=== PATIENT | female | born 1940 | race Caucasian/White ===

== ENCOUNTER 2018-05-09 04:32 | Emergency (ER) | payer MEDICARE, BC, SELFPAY ==
[2018-05-09 04:33] VITALS: BP 164/70; PULSE 74; RESP 18; TEMP 36.6; O2SAT 96; BMI 32.5
--- NOTE | 2018-05-09 05:04 | ED.VISSUMM ---
- ER Visit Summary Date of Service: 05/09/18 Chief Complaint: Right eye pain History of Present Illness: The patient is a 77 F who presents for right eye pain after removing her contact last night. Patient states she rapidly pulled her contact out of her eye like she normally does and had immediate pain. She felt like her contact might of been a little bit dry when she took it out. She now has pain, watering of the eye, and blurry vision. She denies any other complaints. No discomfort in the left eye. Physical Examination: Patient is awake and alert, sitting in a room with bright lights on. Right eye is squinted and watering. Examination shows pupils equal round and reactive to light, with consensual response, extraocular movements are intact without pain. Right eye has watery discharge, no purulence, diffuse conjunctival injection. Test Results: [] Emergency Department Course and Treatment: Tetracaine was instilled in the right eye with immediate improvement in patient's pain. Slit lamp exam was performed with fluorescein dye in the right eye. There was a diffuse corneal abrasion to the right cornea. No ulceration or dendritic lesions noted. Because patient is a contact lens wearer, she was started on ciprofloxacin drops and was instructed not to wear her contacts for the next week. The majority of the tetracaine liquid was wasted, and she was given the tetracaine bottle with only a few drops remaining to use for severe pain. She was given follow-up with ophthalmology. She is to return if any worsening of her condition. Patient discharged home. Treatment Plan: [] Disposition: [] Impression: Right corneal abrasion secondary to contact lens removal This note was generated with [employer] dictation software. It may contain incorrect words, spelling, and punctuation that were not noted in review of the chart prior to signing ED Disposition - Plan for ED Patient: Disposition: Home or Assisted Living Chief Complaint: Eye Problem Instructions: ED Corneal Injury Contact Lens Prescriptions: Ciprofloxacin 0.3% [Ciloxan] 2 drp RIGHT EYE 4X/DAY 5 Days #1 bottle Referrals: Raul Enamorado MD [Primary Care Provider] - As Needed Angel Fraser MD [STAFF PHYSICIAN] - 1-2 Days if not improving Additional Instructions: Use the ciprofloxacin eyedrops as prescribed for 5 days. Follow up with the eye doctor on this paperwork in 1-2 days for a re-evaluation to make sure your eye is healing appropriately. If you have any worsening of your condition or any new concerning symptoms, please return immediately to the emergency department for another evaluation.
--- NOTE | 2018-05-09 05:44 | ED.DEP ---
ED Disposition - Plan for ED Patient: Disposition: Home or Assisted Living Chief Complaint: Eye Problem Instructions: ED Corneal Injury Contact Lens Prescriptions: Ciprofloxacin 0.3% [Ciloxan] 2 drp RIGHT EYE 4X/DAY 5 Days #1 bottle Referrals: Raul Enamorado MD [Primary Care Provider] - As Needed Angel Fraser MD [STAFF PHYSICIAN] - 1-2 Days if not improving Additional Instructions: Use the ciprofloxacin eyedrops as prescribed for 5 days. Follow up with the eye doctor on this paperwork in 1-2 days for a re-evaluation to make sure your eye is healing appropriately. If you have any worsening of your condition or any new concerning symptoms, please return immediately to the emergency department for another evaluation.
[2018-05-09] MEDS: Ciprofloxacin 0.3% 2.5ml Bottle 2 DRP RIGHT EYE (05:57)
[2018-05-09] MEDS: Tetracaine 0.5% Ophthalmic Bottle 1 DRP RIGHT EYE (05:58)
[2018-05-09] MEDS: Fluorescein 1 MG STRIP 1 STRIP RIGHT EYE (05:58)
[2018-05-09 06:10] VITALS: RESP 16
== END 2018-05-09 06:11 | disposition home or self-care (01) ==
PROVIDERS: Emergency Provider Emergency Medicine; Family Provider Family Medicine; PCP Family Medicine
DX: S05.01XA Injury of conjunctiva and corneal abrasion without foreign body, right eye, initial encounter (principal); X50.9XXA Other and unspecified overexertion or strenuous movements or postures, initial encounter; Y93.9 Activity, unspecified; Y92.89 Other specified places as the place of occurrence of the external cause; Y99.9 Unspecified external cause status
CPT/HCPCS: 99282

== ENCOUNTER → 2019-03-22 10:39 | Outpatient (CLI) | payer MEDICARE, BC, SELFPAY ==
--- NOTE | 2019-03-22 10:44 | RAD_ITS ---
STUDY: X-RAY - LEFT KNEE REASON FOR EXAM: Female, 78 years old. TECHNIQUE: view(s) of the knee. COMPARISON: None. FINDINGS: Normal visualized distal femur. Normal visualized proximal tibia and fibula. Normal proximal tibiofibular articulation. There are faint calcifications within the medial and lateral femorotibial compartments consistent with chondrocalcinosis. Normal patellofemoral articulation. The soft tissue structures are unremarkable. RAD/Knee 4 or More Views IMPRESSION: Chondrocalcinosis. Electronically Signed: Mei Scott MD at 16:58 EDT Tel , Service support ,
== END ==
PROVIDERS: Family Provider Family Medicine; PCP Family Medicine; Referring Provider Registered Nurse; Visit Provider Registered Nurse
DX: M25.562 Pain in left knee (principal); M79.605 Pain in left leg; G89.29 Other chronic pain
CPT/HCPCS: 73564

== ENCOUNTER → 2019-07-07 07:08 | Outpatient (CLI) | payer MEDICARE, BC, SELFPAY ==
--- NOTE | 2019-07-07 07:14 | MRI_ITS ---
STUDY: MRI LEFT KNEE REASON FOR EXAM: Female, 78 years old. Knee pain TECHNIQUE: Standardized fat and water weighted pulse sequences were obtained in all 3 orthogonal planes. COMPARISON: 03/22/2019 FINDINGS: Complex tear of the posterior horn of the medial meniscus with a 1 cm trizonal radial tear of the root and a 2 cm trizonal flap tear extending to the inferior surface. Normal hyaline cartilage of the medial femorotibial compartment. There is reactive marrow edema of the medial tibial plateau. Associated medial capsulitis. Normal medial collateral ligamentous complex (MCL). Normal distal semimembranosus, gracilis and semitendinosus tendons. Normal lateral meniscus. Normal hyaline cartilage of the lateral femorotibial compartment. Normal lateral femoral condyle and tibial plateau. Normal proximal tibiofibular articulation. Normal lateral collateral (fibular) ligament. Normal popliteus tendon. Normal biceps femoris tendon. Normal anterior cruciate ligament (ACL). Normal posterior cruciate ligament (PCL). Shallow trochlear groove with lateral subluxation of patella and edema superolateral Hoffa's fat pad consistent with patellofemoral maltracking. Normal hyaline cartilage of the patellofemoral compartment. Normal medial and lateral patellar retinaculum. Normal quadriceps tendon. Normal patellar tendon. Normal Hoffa's fat pad. There is a moderate volume joint effusion. The soft tissues are unremarkable. The otherwise visualized osseous structures are unremarkable. MRI/Lower Ext Joint Only (Routine) IMPRESSION: 1. Complex tear of the posterior horn of the medial meniscus with focal subchondral edema medial tibial plateau and medial capsulitis. 2. 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 3. Moderate joint effusion. Electronically Signed: Abdullahi Barr MD at 11:04 EST Tel , Service support ,
== END ==
PROVIDERS: Family Provider Family Medicine; PCP Family Medicine; Referring Provider Specialist; Visit Provider Specialist
DX: M25.462 Effusion, left knee (principal)
CPT/HCPCS: 73721

== ENCOUNTER 2019-09-21 12:42 | Emergency (ER) | payer MEDICARE, BC, SELFPAY ==
[2019-09-21] VITALS (7 sets, daily range): BP systolic 135–184; BP diastolic 69–90; PULSE 67–81; RESP 12–17; TEMP 36.5; O2SAT 98–100; BMI 33.3
--- NOTE | 2019-09-21 13:05 | RAD_ITS ---
STUDY: X-RAY - LEFT ANKLE REASON FOR EXAM: Female, 78 years old. FALL, PAIN TECHNIQUE: 3 view(s) of the ankle. COMPARISON: None. FINDINGS: Avulsion fracture of the medial malleolus. Oblique fracture of the distal fibula. Avulsion fracture of the posterior malleolus. Lateral displacement of the talus with the disruption of the ankle mortise. Disruption of the distal tibiofibular ligament. Normal visualized talus and calcaneus. The visualized subtalar, talonavicular, calcaneocuboid and tarsal articulations are normal. Soft tissue swelling. RAD/Ankle min 3 Views IMPRESSION: Fracture/subluxation involving the medial and posterior malleoli of the distal tibia as well as the lateral malleolus. Soft tissue swelling. Electronically Signed: Juan Avitia, at 13:36 EST , Service support ,
--- NOTE | 2019-09-21 13:06 | ED.VIS.GEN ---
History of Present Illness Chief Complaint: Lower Extremity Injury Informant: Patient, Significant Other, Marketing Instructor Onset: Today Narrative: Reportedly fell going on the stairs. Her left leg was caught underneath of her. EMS was called and she was transported in the splint. Patient denies any other injuries. Specifically denying any head neck or back pain. No other extremity injuries. Past Medical History - Allergies and Home Meds Allergies/Adverse Reactions: Allergies clopidogrel [From Plavix] Allergy (Verified 09/21/19 12:49) Hives Primary Care Physician: Raul Enamorado MD [Primary Care Provider] - Smoking Status: Never smoker Review of Systems General: Denies: Chills, Fever, Sweats Eyes: Denies: Visual changes - bilaterally, Diplopia ENT: Denies: Rhinorrhea, Sore throat Cardiovascular: Denies: Chest pain, Palpitations Respiratory: Denies: Dyspnea, Cough, Dyspnea on exertion Gastrointestinal: Denies: Abdominal pain, Nausea, Vomiting, Diarrhea, Melena, Hematochezia Genitourinary: Denies: Dysuria, Hematuria, Frequency Musculoskeletal: Denies: Back pain, Extremity Pain Skin: Denies: Rash, Wounds Neurological: Denies: Headache, Weakness, Numbness Physical Exam Vital Signs/Narrative: Vital Signs Temp Pulse Resp BP Pulse Ox 09/21/19 12:45 97.7 F L 68 16 135/69 H 98 Inital Vital Signs reviewed: Yes General: Well nourished, Well developed, No Acute Distress Head: Normocephalic, Atraumatic Eyes: Perrl, EOMI ENT: Moist mucous membranes, No rhinorrhea Neck: Supple, Nontender Cardiovascular: Regular rate, Regular rhythm, No murmurs Respiratory: No distress, CTA bilaterally, Chest nontender Abdomen: Soft, Nontender, Nondistended, Normal bowel sounds Back: Nontender, Normal Inspection Extremities: Tenderness Skin: Normal color, No rash Neurological: Alert, Oriented x3, Cranial nerves II-XII grossly intact, Normal Strength, Normal Sensation Psychological: Normal affect, Normal Mood Diagnostic/Tx/Re-eval - Medical Decision Making X-rays of the ankle demonstrated a trimalleolar fracture with subluxation. Patient provided informed consent for the use of procedural sedation to reduce and splint the injury. She received a procedural sedation dose of etomidate. Ankle was reduced and she was placed in a well-padded posterior and stirrup Ortho-Glass splint. Neurovascular intact pre-and post application. Tolerated sedation extremely well. There were no reported events noted. The patient has access to a wheelchair states she is able to be nonweightbearing around her house with a wheelchair. Patient will follow up with Dr. Enamorado who is her orthopedic surgeon. Case was discussed with Dr. De La Paz. Procedures - Lower Extremity Splints Lower Extremity Splint: Orthoglass Splint Fabrication: Pre-fabricated Location: Right Procedure(s): Procedural sedation used for the closed reduction of fracture dislocation of the left ankle ED Disposition - Plan for ED Patient: Disposition: Home or Assisted Living Diagnosis: Closed right trimalleolar fracture Instructions: FRACTURE, Ankle (General) Prescriptions: Oxycodone HCl/Acetaminophen [Percocet 5/325] 1 tab PO Q6H PRN PRN 3 Days #12 tab PRN Reason: Pain Prescription Printed Referrals: Weston Enamorado MD [STAFF PHYSICIAN] - As soon as possible
[2019-09-21] MEDS: Ondansetron 4 MG/2 ML Vial IV ×2 (13:35→16:15)
[2019-09-21] MEDS: Morphine 4 MG/ML Syringe IV (13:35)
--- NOTE | 2019-09-21 15:23 | RAD_ITS ---
STUDY: X-RAY - LEFT ANKLE REASON FOR EXAM: Female, 78 years old. Post reduction TECHNIQUE: AP and lateral view(s) of the ankle. COMPARISON: Comparison is made with prior study done earlier in the day. FINDINGS: There is satisfactory reduction of the trimalleolar fracture. RAD/Ankle 2 Views IMPRESSION: Satisfactory reduction of the trimalleolar fracture. Electronically Signed: Juan Avitia, at 15:39 EST , Service support ,
--- NOTE | 2019-09-21 16:49 | ED.DEP ---
ED Disposition - Plan for ED Patient: Disposition: Home or Assisted Living Diagnosis: Closed right trimalleolar fracture Instructions: FRACTURE, Ankle (General) Prescriptions: Oxycodone HCl/Acetaminophen [Percocet 5/325] 1 tab PO Q6H PRN PRN 3 Days #12 tab PRN Reason: Pain Prescription Printed Ondansetron [Zofran Odt] 4 mg PO Q8H PRN PRN 4 Days #10 tab PRN Reason: Nausea Prescription Printed Referrals: Weston Enamorado MD [STAFF PHYSICIAN] - As soon as possible
== END 2019-09-21 16:55 | disposition home or self-care (01) ==
PROVIDERS: Emergency Provider Emergency Medicine; PCP Family Medicine
DX: S82.851A Displaced trimalleolar fracture of right lower leg, initial encounter for closed fracture (principal); W10.9XXA Fall (on) (from) unspecified stairs and steps, initial encounter; Y93.9 Activity, unspecified; Y92.89 Other specified places as the place of occurrence of the external cause; Y99.9 Unspecified external cause status
CPT/HCPCS: 27818; 73600; 73610; 96374; 96375; 96376; 99285; J7050; A4216; J2405

== ENCOUNTER → 2019-09-26 16:53 | Outpatient (CLI) | payer MEDICARE, BC, SELFPAY ==
[2019-09-21 12:45] VITALS: BMI 33.3
--- NOTE | 2019-09-26 16:55 | CT_ITS ---
STUDY: CT LEFT ANKLE WITHOUT CONTRAST REASON FOR EXAM: Female, 78 years old. DISLOCATION/FX LEFT ANKLE RADIATION DOSAGE (If Supplied By Facility): CTDIvol = ( 15.35 ) mGy, DLP = ( 323.06 ) mGycm TECHNIQUE: Thin section transaxial imaging of the ankle was obtained, with sagittal and coronal reconstructed images. Individualized dose optimization techniques were used for this CT. COMPARISON: 3 views of the left ankle and 2 post reduction and splinting views of the left ankle September 21, 2019 FINDINGS: The lower leg, ankle, and foot are enclosed in plaster splint. There is mildly oblique intra-articular fracture through the base of medial malleolus with minor residual medial displacement of the distal fracture fragment. Very small cortical avulsion fracture fragments also seen in the tissues medial to the medial malleolus. Comminuted vertical fracture through the posterior tibial malleolus is in anatomic alignment with minor separation between the fracture fragments. Oblique fracture of the distal fibular metadiaphysis/lateral malleolus shows 3.5 mm lateral displacement, 2 mm dorsal displacement, and slight medial angulation of the distal fracture fragment at the cephalad fracture margin. Normal tibiotalar alignment, joint space, and talar dome. One or two 1-2 mm calcifications project within the tibiotalar joint space. Normal talus, calcaneus, navicular and cuboid tarsal bones. Normal subtalar, talonavicular and calcaneocuboid articulations. Normal navicular-cuneiform, cuneiform tarsal bones and intercuneiform articulations. Normal tarsometatarsal articulations and visualized metatarsi. There is mild superficial soft tissue swelling from the distal lower leg through the ankle into the foot. Swelling/soft tissue thickening becomes more confluent along the medial and lateral malleoli. CT/Extremity Lower without Contra IMPRESSION: Trimalleolar ankle fracture with the fragments in near-anatomic alignment, enclosed by plaster splint. A few 1-2 mm calcifications project within the tibiotalar joint space. There is superficial soft tissue swelling. Electronically Signed: Tony Torres MD at 20:05 EST , Service support ,
== END ==
PROVIDERS: PCP Family Medicine; Referring Provider Podiatrist Foot & Ankle Surgery; Visit Provider Podiatrist Foot & Ankle Surgery
DX: S93.05XA Dislocation of left ankle joint, initial encounter (principal); S82.852A Displaced trimalleolar fracture of left lower leg, initial encounter for closed fracture; S93.492A Sprain of other ligament of left ankle, initial encounter
CPT/HCPCS: 73700

== ENCOUNTER 2019-10-04 09:20 | Day surgery (SDC) | payer MEDICARE, BC, SELFPAY ==
[2019-09-21 12:45] VITALS: BMI 33.3
--- NOTE | 2019-09-30 10:37 | RAD_ITS ---
STUDY: X-RAY CHEST REASON FOR EXAM: Female, 78 years old. PRE OP ANKLE SURGERY TECHNIQUE: PA and lateral views of the chest. COMPARISON: None. FINDINGS: Hyperinflation. Scattered calcified granulomas. No acute abnormalities. There is no demonstrated pleural abnormality. Normal size heart. Normal mediastinum and enrique. Normal visualized pulmonary arteries. There is atherosclerotic calcification of the aortic arch with tortuosity. There are diffuse degenerative changes of the visualized thoracic spine. Normal visualized ribs, clavicles, and shoulders. There is no demonstrated abnormality of the visualized soft tissue structures of the upper abdomen. RAD/Chest PA and Lateral IMPRESSION: Hyperinflation. No acute abnormality is seen. Electronically Signed: Juan Avitia, at 11:14 EST , Service support ,
--- NOTE | 2019-09-30 10:38 | EKG12_ITS ---
Test Reason : PRE OP Blood Pressure : / mmHG Vent. Rate : 075 BPM Atrial Rate : 075 BPM P-R Int : 166 ms QRS Dur : 072 ms QT Int : 376 ms P-R-T Axes : 079 -20 036 degrees QTc Int : 419 ms Normal sinus rhythm Inferior infarct , age undetermined Abnormal ECG Confirmed by GIANCARLO SCHWARZ ([id number]), book editor AMANDA BRUNO ([id number]) on 10/03/2019 3:46:47 PM Referred By: Sergio Bruno Confirmed By:GIANCARLO SCHWARZ
[2019-09-30 10:46] LABS: Absolute Lymphocyte Count 1.75 X10^3/uL (0.83-4.51); Absolute Neutrophil Count 4.3 X10^3/uL (2.0-7.7); Basophil# 0.05 X10^3/uL; Basophil% 0.7 % (0-1); Eosinophil# 0.17 X10^3/uL; Eosinophils% 2.5 % (0-5); Hematocrit 39.3 % (37-47); Hemoglobin 12.9 g/dL (12.0-15.0); Lymphocyte # 1.75 X10^3/ul (4.0); Lymphocyte % 25.5 % (19-41); Mean Corp Hgb Conc 32.8 g/dL (32-36); Mean Corpuscular Hgb 28.7 pg (27.0-32.0); Mean Corpuscular Volume 87.3 fL (81-99); Mean Platelet Vol. 9.2 fl (6.2-12.0); Monocyte% 8.7 % (0-10); NRBC Flagged by Analyzer 0 % (0-5); Neutrophil # 4.27 X10^3/uL (2.7-7.7); Neutrophil % 62.2 % (47-70); Platelet Count 374 K/mm3 (150-450); RBC Distribution Width CV 12.9 % (11.6-14.6); RBC Distribution Width SD 41.1 fl (35.1-43.9); White Blood Count 6.9 K/mm3 (4.4-11.0)
[2019-09-30 11:05] LABS: Hemoglobin A1c 5.7 % (4.2-6.3)
[2019-09-30 11:13] LABS: Anion Gap 5 (5-15); BUN 14 mg/dL (7-18); BUN/Creat Ratio 18.2 RATIO (10-20); Calcium,Total 10.6 mg/dL (8.5-10.1); Chloride 102 mmol/L (98-107); Creatinine, Serum 0.77 mg/dL (0.55-1.02); EST Glomerular Filtration Rate 77 mL/min (>60); Est Glom Filt Rate - Afr Amer 93 mL/min (>60); Glucose 98 mg/dL (74-106); Potassium 3.9 mmol/L (3.5-5.1); Prothrombin Time (Protime)PT. 13.2 SECONDS (11.7-14.9); Sodium Level 136 mmol/L (136-145)
[2019-09-30 11:14] LABS: Partial Thromboplast Time 28.4 Seconds (24.1-36.2)
[2019-10-04] VITALS (9 sets, daily range): BP systolic 138–167; BP diastolic 64–99; PULSE 71–98; RESP 16–18; TEMP 36.1–36.7; O2SAT 94–99; BMI 34.4
[2019-10-04 10:08] LABS: AST(SGOT) 21 U/L (15-37); Alanine Aminotransfer ALT/SGPT 25 U/L (13-56); Albumin, Serum 3.3 g/dL (3.2-5.0); Alkaline Phosphatase 91 U/L (45-117); Bilirubin, Direct 0.18 mg/dL (0.00-0.30); Globulin 4.8 g/dL (2.2-4.2); Protein, Total 8.1 g/dL (6.4-8.2)
[2019-10-04] MEDS: Lactated Ringers 1,000 ML 100 ML IV ×3 (10:10→15:29)
[2019-10-04] MEDS: Cefazolin 2 GM in 0.9% Normal Saline 100 ML IV (11:23)
--- NOTE | 2019-10-04 11:30 | RAD_ITS ---
STUDY: X-RAY - LEFT ANKLE REASON FOR EXAM: Female, 78 years old. ORIF TRIMALLEOLAR ANKLE FRACTURE TECHNIQUE: Intraoperative fluoroscopic view(s) of the ankle. COMPARISON: 21 September 2019 FINDINGS: Intraoperative fluoroscopic views were performed for repair of distal fibular fracture. RAD/Ankle min 3 Views IMPRESSION: Intraoperative fluoroscopy of the ankle. Electronically Signed: Kim Peres, at 17:45 EST Tel , Service support ,
[2019-10-04] MEDS: Bupivacaine Mpf 0.5% 30 ML VIAL (11:43)
--- NOTE | 2019-10-04 14:03 | DCINST_ITS ---
Discharge Diet: No Restrictions Discharge Activity: May Not Drive, May not drive while taking narcotic pain medications., May Not Shower, Use Walker, Use Crutches Weight Bearing Status: No weight bearing Keep extremity elevated above heart level: Left Leg Additional Activity Instructions:: Keep dressing to left leg clean, dry, intact. Do not get dressing wet. I recommend sponge bathing only. Do not change dressing. Dressing will be changed at next visit with Dr. Bruno. Elevate left foot above level of heart at all times. Ice around left knee 20 minutes on, 20 minutes off, every hour while awake for the next 7 days. Begin taking aspirin 325 mg October 05. Begin taking doxycycline (antibiotic) on October 05 as instructed. Begin taking Percocet October 04, around 6 PM. 3 hours later, supplement with 600 mg of ibuprofen. 3 hours later, take another Percocet. Every 3 hours you should be switching between Percocet and ibuprofen, with 6 hours in between the Percocet and 6 hours in between the ibuprofen. May take 2 tablets of Percocet per time as needed. No walking or standing on left foot. Use crutches, walker, or wheelchair for assistance. Call your doctor if your incision/area has: Sudden Increased Bleeding, Increased Pain/ Swelling Call your doctor if you observe: Fever of 101 or Higher, Coldness, Increased Pain, Shortness of breath, Chest pain, Increased palpitations (irregular heartbeat), Calf discomfort, Uncontrolled pain Suture Line Care: Avoid Pulling/Pushing, Avoid Pinching/Bending Cleanse incision/area with: Keep Dressing Clean & Dry Allergies/Adverse Reactions: Allergies clopidogrel [From Plavix] Allergy (Verified 10/04/19 09:57) Hives Medications to take at Discharge Aspirin 81 mg PO DAILY 09/21/19 Hydrochlorothiazide [Hctz] 12.5 mg PO QHS 09/21/19 Calcium Carb/Vitamin D3/Vit K2 [Calcium Plus Menaq7 Adult Tab] 1 ea PO BID 09/28/19 Calcium Carbonate/Vitamin D3 [Calcium 600-Vit D3 800 Caplet] 1 ea PO BID 09/28/19 Collagen,Bovine [[place] Collagen] 1 tab PO BID 09/28/19 Multivit-Min/Folic Acid/Vit K1 [Multi For Her 50 Plus Softgel] 1 ea PO DAILY 09/28/19 Carlock-3/Dha/Epa/Fish Oil [[place] 3 500 Softgel] 1 ea PO TID 09/28/19 Turmeric Root Extract [Turmeric] 500 mg PO BID 09/28/19 Primary Care Physician: Raul Enamorado MD [Primary Care Provider] - Test Results: Test results from this visit will be discussed in further detail at your follow- up appointment, if applicable. Please Follow Up With: Sergio Bruno DPM When: 1 week as scheduled Proposed Discharge Date: 10/04/19
--- NOTE | 2019-10-04 14:07 | RAD_ITS ---
STUDY: X-RAY - LEFT ANKLE REASON FOR EXAM: Female, 78 years old. POST OP ORIF TRI MALLEOLAR TECHNIQUE: 3 view(s) of the ankle. COMPARISON: None. FINDINGS: There is a sideplate and cortical screws transfixing the distal fibula. There are 2 cortical screws transfixing the medial malleolus. There is still a fracture line extending into the tibial talar space. RAD/Ankle min 3 Views IMPRESSION: Status post open reduction internal fixation of the left medial lateral malleolus. Of the medial malleolar fracture there is intra-articular extension into the tibial talar joint space. Electronically Signed: Soha Hein MD at 17:46 EST Tel , Service support ,
--- NOTE | 2019-10-04 14:12 | PCM.OPRPT ---
Problem List (1) Fracture of ankle, trimalleolar, left, closed Status: Acute Qualifiers: Encounter type: subsequent encounter Fracture healing: with routine healing Qualified Code(s): S82.852D - Displaced trimalleolar fracture of left lower leg, subsequent encounter for closed fracture with routine healing (2) Dislocation of left ankle joint, subsequent encounter Status: Acute Report of Operation Date of Procedure: 10/04/19 Pre-Operative Diagnosis: 1. Left ankle trimalleolar fracture. #2 left ankle joint dislocation Post-Operative Diagnosis: Same as preoperative Surgery/Procedure Performed:: 1. Open reduction with internal fixation of left ankle trimalleolar fracture. #2 reduction ankle joint dislocation Description of Surgical Findings:: Consistent with diagnosis. Reduction of deformity achieved and held with internal fixation. route inspector: Shala Mariscal Type of Anesthesia:: General/Regional - With a popliteal and saphenous block given to the left lower extremity Anesthesiologist: Kiet Gibson Special Medications: 2 g of Ancef given preoperatively Specimen's removed: None Drains: None Estimated Blood Loss (mL): 25 Description of Procedure: Pathology: None Anesthesia: General with a popliteal/saphenous block to the left lower extremity Hemostasis: Pneumatic thigh tourniquet placed to level of the left thigh at 300 mmHg for 120 minutes Estimated blood loss: 25 mL Materials: 1.)Mildred 4 hole left lateral fibula plate 2.)3.5 x 20 mm cortical screw x2 3.) 3.5 x 12 mm cortical screw 4.) 3.5 x 14 mm cortical screw 5.) 3.5 x 16 mm locking screw. 6.) 3.5 x 12 mm locking screw x2 7.) 3.5 x 40 mm locking screw x2 8.) 4.0 x 16 mm cannulated screw. 9.) 4.0 x 40 mm cannulated screw. 10.)Size 0 Vicryl. 11.) size 2-0 Vicryl. 12.) size 3-0 Vicryl. 13.) size 3-0 nylon Injectables: 5 mL 0.5 the Marcaine plain Complications: None Condition: Stable Indications: Patient is a 78 year old female with multiple medical problems who suffered a slip and fall while at home on September 21, 2019. Patient felt immediate pain and noticed deformity of her left foot and ankle. Patient presented to the emergency department at [facility] at that time for further evaluation. Patient was told that she had an ankle fracture. A closed reduction was performed at that time and the patient was placed in a posterior splint. Patient was then told to remain nonweightbearing and was given crutches for ambulation. Patient saw me in the office on September 23 for further care. At that time, new x-rays were taken and I discussed with the patient his findings. This included a fracture of the fibula and tibia along with the instability of the left ankle I discussed with the patient his goals of activity and her lifestyle. Patient is an active person who wants to return to activity without deficits. I discussed conservative and surgical interventions with the patient, and the risks and benefits to both. Surgical intervention would include an open reduction with internal fixation of the left ankle. I recommended surgical intervention due to his lifestyle and the deformity present. Patient was agreeable to surgical intervention and this is what she wished as well. Due to the significant swelling that was present and the loss of skin lines noted, I discussed with the patient that we have to wait approximately 10 to 14 days before surgical intervention. In the meantime, a CT scan was ordered for the patient on the left ankle to assess the posterior malleoli are fracture and the cartilage in the talus and the tibia. The CT scan showed no damage to the cartilage and showed a small posterior malleolus fracture that was nondisplaced. During that time as well, patient saw her primary care physician for medical clearance and completed preoperative testing. I had the patient come back to my office on Monday, September 30, 2019 for an edema check. It was noted that there was significant reduction in edema and skin lines were then present. It was then determined at that time that surgical intervention will be performed today, October 04, 2019. Patient agreed with the plan and agreed to surgical intervention. Operative Report: Before the patient was brought to the operating room, the risks, benefits, possible outcomes, possible complications of the procedure discussed with the patient. The risks include but are not limited to delayed or nonhealing wounds, delayed and nonhealing bone, infection, DVT, loss of limb, loss of life. All the patient's questions were answered to her satisfaction and all of her concerns were addressed. No guarantees were made as to the outcome of the procedure. Patient understood all aspects of the procedure, and consent was then signed by the patient. Before the patient was brought to the operating room, the anesthesiologist administered a popliteal/saphenous block to the left lower extremity. The patient was then brought to the operating room and placed on the operating table in supine position. After timeout, under general anesthesia, well-padded pneumatic thigh tourniquet was placed to level of the left thigh. The left foot, ankle, leg were then scrubbed, prepped, draped in the usual sterile manner. Elevation of the left lower extremity was followed by exsanguination via Esmarch and inflation of the pneumatic thigh tourniquet to 300 mmHg. Attention was then directed to the lateral aspect of the left ankle. At this time, radiographic evaluation was performed to determine the distal tip of the lateral malleolus, level of the fibular fracture, and distal one third of the fibular shaft. These were then marked on the skin of the patient. Next, #15 blade was used to perform a linear longitudinal incision starting on the lateral aspect of the distal one third of the fibular shaft extending distally to the distal tip of the lateral malleolus. This incision was deepened utilizing sharp and blunt dissection. Care was taken to retract all vital neural and vascular structures. All bleeders were cauterized and ligated as necessary. At this time, a linear periosteal and capsular incision was made in line with the original skin incision. The periosteal and capsular structures then reflected anteriorly and posteriorly, thus exposing the fibula fracture at the operative site. At this time, a curette was used to remove any fibrous tissue contained within the fracture site. Surgical site was irrigated copious amounts normal sterile saline. At this time, the fracture was then reduced via temporary fixation. Radiographic evaluation was then performed. The fracture was noted to be reduced at this time back in anatomical position. The fibula was noted to be out to length and no rotation was noted. The fibula appeared back in anatomical position at this time. Next, the Salma 3.5 cortical lag screw was inserted in standard AO fixation as perpendicular to the fracture site as possible. Of note during insertion of the screw was adequate compression of the fracture fragments. Furthermore, no shifting any of the fragments occurred during insertion of the screw. Once the screw was fully inserted, all temporary fixation was then removed. Radiographic evaluation was then performed. The interfragmentary screw was noted to hold the fracture in the corrected reduced position. Furthermore, the fibula was noted to be held in anatomic position. This time, the Salma 4 hole lateral fibula plate was placed over the lateral aspect of the fibula. Radiograph evaluation was then performed to determine the exact position that it should be placed. Once determined, this was held via temporary fixation. Next this was held down to the lateral aspect of the fibula with a mixture of nonlocking and locking screws. Of note during insertion of the screws was adequate compression of the plate to the fibula. Furthermore, no shifting of the plate or any of the fragments occurred during insertion of the screws. Once all the screws were removed, temporary fixation was then removed and radiographic evaluation was then performed. The fibula was noted to be out to length and held in the corrected reduced position. Furthermore, all screws noted to not to be too long or too short. The fracture fragments of the fibula were noted to be held in the corrected reduced position. At this time, the hook test was performed under live radiographic evaluation. Care was taken make sure that an ample amount of stress was placed on the syndesmosis to test the integrity. There was no widening of the distal tibiofibular joint. The syndesmosis was deemed intact at this time and would not need to be fixed. The surgical site was then irrigated with copious amounts of normal sterile saline. The periosteal and capsular structures of the surgical site were then reapproximated and coapted utilizing size 0 Vicryl and size 2-0 Vicryl. The subcutaneous tissue was reapproximated coapted utilizing size 2-0 Vicryl and 3-0 Vicryl. The skin of the surgical site was reapproximated coapted utilizing 3-0 nylon in a simple interrupted horizontal mattress fashion. Attention was then directed to the medial malleolus of the left ankle. At this time, radiographic evaluation was used to determine the level of the fracture at the distal tip of the medial malleolus. Next, a curvilinear incision was made starting at the medial aspect of the midportion of the medial malleolus extending distally and anteriorly to the distal tip of the medial malleolus. This incision was deepened utilizing sharp and blunt dissection. Care was taken retract all vital neural and vascular structures. All bleeders were cauterized and ligated as necessary. At this time, the medial malleolar fracture was reduced and held via temporary fixation. Radiograph evaluation was performed. The medial malleolus fracture was noted to be reduced from preoperative assessment. Of note is that the deltoid ligament was placed back in anatomical position as well. At this time, the Salma 4.0 cancellus screws were placed through the medial malleolus to aid in the compression of the medial malleolar fracture site. The screws were inserted in standard AO fixation. Of note during insertion of the screws was adequate compression of the fracture fragments. Furthermore, no shifting any of the fracture occurred during insertion of the screws. Once the screws were fully inserted, temporary fixation was then removed. Radiograph evaluation was then performed and the screws noted to hold the medial malleolus in an anatomically reduced position. Final radiographs were then performed. The fibula was noted to be out to length and back in anatomical position. The hardware was noted to hold the fibula in the correct position. The fracture was noted to be reduced from preoperative assessment. The medial malleolus was noted to be reduced back into anatomical position. The hardware was noted to hold the medial malleolus in the corrected position. Furthermore, the posterior malleolus fracture was minimal and in anatomical position. The surgical site of the medial malleolus was irrigated with copious amounts normal sterile saline. The deltoid ligament and deeper soft tissues were reapproximated and coapted utilizing size 0 Vicryl. The subcutaneous tissue was reapproximated and coapted utilizing 2-0 Vicryl. The skin was reapproximated coapted utilizing 3-0 nylon in a simple interrupted horizontal mattress fashion. At this time the pneumatic thigh tourniquet was then released and a prompt hyperemic response noted to the entirety of the left lower extremity. Blood flow was reestablished to the left ankle and foot. Neurovascular status was assessed and deemed intact to left lower extremity. Each surgical site was then dressed with Betadine soaked gauze, and a dry sterile dressing consisting of of 4 x 4 gauze, ABD pads, wrapped with Kerlix. Care was taken to make sure that adequate padding was placed on the heel and around the ankle. The left foot and ankle were then wrapped with an Christian bandage. At this time, a stockinette was placed over the left lower extremity. Next, cast padding was wrapped in the metatarsal heads extending proximally to the level just distal to the tibial tuberosity. A posterior splint was fashioned to the left lower extremity and was adhered to the left lower extremity utilizing Christian bandages. Care was taken make sure the foot and ankle held in neutral position as the posterior splint dried. Neurovascular status was assessed at the end of the application and deemed intact to the left lower extremity. The patient tolerated the anesthesia and the procedure well and was transferred to the PACU with vital signs stable neurovascular status intact the left lower extremity. After a period of postoperative monitoring, patient will be discharged home with written and oral instructions for wound care and follow-up. The certified surgical first assistant, the nurse practitioner, was utilized throughout the entire procedure. She helped with patient positioning. She helped with retraction throughout the procedure. She helped with bandage application and cast application. Without the certified surgical first assistant, surgical time would have likely been increased and the surgical outcome could have been less optimal. - Complications None - Admit VTE Documentation VTE Present on Admission: No VTE Mechan Device Prophylaxis: SCD's VTE Pharm Prophylaxis ordered?: Yes
== END 2019-10-04 17:00 | disposition home or self-care (01) ==
LOC: SDC 09:21 → AC 09:21
PROVIDERS: Anesthesiology; PCP Family Medicine; Referring Provider Podiatrist Foot & Ankle Surgery; Visit Provider Podiatrist Foot & Ankle Surgery
PROC: (CPT 27822; principal; 2019-10-04 10:40)
DX: S82.852A Displaced trimalleolar fracture of left lower leg, initial encounter for closed fracture (principal); S93.05XA Dislocation of left ankle joint, initial encounter; M19.90 Unspecified osteoarthritis, unspecified site; I25.10 Atherosclerotic heart disease of native coronary artery without angina pectoris; I10 Essential (primary) hypertension; Z95.5 Presence of coronary angioplasty implant and graft; Z86.73 Personal history of transient ischemic attack (TIA), and cerebral infarction without residual deficits; Z79.82 Long term (current) use of aspirin; Z79.891 Long term (current) use of opiate analgesic; Z79.899 Other long term (current) drug therapy; W10.9XXA Fall (on) (from) unspecified stairs and steps, initial encounter; Y93.89 Activity, other specified; Y92.009 Unspecified place in unspecified non-institutional (private) residence as the place of occurrence of the external cause; Y99.8 Other external cause status
CPT/HCPCS: 01480; 27822; 36415; 71046; 73610; 76000; 80048; 80076; 83036; 85025; 85610; 85730; 93005; C1713; J7120; J2405

== ENCOUNTER → 2020-03-01 08:15 | Outpatient (CLI) | payer MEDICARE, BC, SELFPAY ==
[2019-10-04 10:02] VITALS: BMI 34.4
--- NOTE | 2020-03-01 08:22 | US_ITS ---
STUDY: ABDOMINAL ULTRASOUND REASON FOR EXAM: Female, 79 years old. RUQ PAIN TECHNIQUE: Transabdominal ultrasound was performed with real-time and static cruz scale imaging. TECHNICAL QUALITY: Adequate. COMPARISON: None. FINDINGS: Liver: The liver measures 12.5 cm. There is increased echogenicity consistent with mild degree of fatty infiltration. The bile ducts are within normal limits. There is hepatic color flow. The direction of portal flow is hepatopetal. There is no demonstrated mass lesion. Portal vein measurement: Gallbladder: Normal distended gallbladder. The gallbladder wall measures 3.6 mm. There is a positive sonographic Lucero''s sign. There is no pericholecystic fluid. There are no gallstones. Common Bile Duct (C.B.D.): The common bile duct measures 3.3 mm. Pancreas: Normal size of the head, body and tail of the pancreas. There is normal echogenicity of the pancreas. There is no demonstrated pancreatic mass or cyst. Spleen: Normal size of the spleen. The spleen measures 9.4 cm x 5 cm x 4.1 cm. Right Kidney: Normal size of the right kidney. The right kidney measures 9.1 cm x 4.57 x 6.0 cm. Normal renal cortex. The right cortex measures 2.0 cm. There is a 1.9 cm x 1.9 cm x 1.5 cm cyst in the upper pole. There is no right hydronephrosis. Left Kidney: Normal size of the left kidney. The left kidney measures 8.9 cm x 4.4 cm x 4.7 cm. Normal renal cortex. The left cortex measures 1.5 cm. There is no demonstrated renal mass or cyst. There is no left hydronephrosis. Aorta: Unremarkable I.V.C.: The IVC is patent. There is no ascites. US/Abdomen Complete IMPRESSION: Mild degree of fatty infiltration of the liver. Cyst seen in the upper pole of the right kidney. Electronically Signed: Juan Avitia, at 12:47 EDT , Service support ,
== END ==
PROVIDERS: PCP Family Medicine; Referring Provider Family Medicine; Visit Provider Family Medicine
DX: R10.11 Right upper quadrant pain (principal)
CPT/HCPCS: 76700

== ENCOUNTER → 2020-03-07 09:45 | Outpatient (CLI) | payer MEDICARE, BC, SELFPAY ==
[2019-10-04 10:02] VITALS: BMI 34.4
--- NOTE | 2020-03-07 09:47 | NM_ITS ---
CLINICAL: 79-year-old female with reported history of epigastric pain. RADIONUCLIDE HEPATOBILIARY SCINTIGRAPHY COMPARISON: Abdominal ultrasound report 03/01/2020 FINDINGS: Following the intravenous administration of 5.8 mCi of 99m Tc Mebrofenin, hepatobiliary images reveal: 1. Relatively prompt and homogeneous radiopharmaceutical concentration is noted by a normal sized liver. No parenchymal defects are identified. 2. Gallbladder activity is identified at 15 minutes post radiopharmaceutical administration. 3. Small intestinal tract is not visualized during 60 minutes of pre-CCK sequential imaging. Small bowel activity is identified following the administration of cholecystokinin. 4. Washout of the radiopharmaceutical by the hepatic parenchyma appears qualitatively normal. Cholecystokinin (0.02 ug/kg) was administered intravenously over a 30-minute period. The post CCK gallbladder ejection fraction calculated at 21 minutes following Cholecystokinin administration was noted to be 18.0 % (normal greater than 35%). NM/Hepatobilliary Img w/Pharm Int IMPRESSION: 1. ABNORMAL 99m Tc Mebrofenin hepatobiliary imaging examination with Cholecystokinin. A. A gallbladder ejection fraction calculated to be less than 35% following the administration of Cholecystokinin is consistent with the presence of functional hepatobiliary disease (gallbladder and/or sphincter of Oddi dyskinesia) and/or organic hepatobiliary disease (chronic acalculous cholecystitis and/or cystic duct syndrome) in patients with intermediate to high pretest likelihoods of hepatobiliary illness. (Bola Manzanares et al, Journal of Nuclear Medicine 32:1695, 1991). Electronically Signed: Abdullahi Yu DO at 21:37 EDT Tel , Service support ,
== END ==
PROVIDERS: PCP Family Medicine; Referring Provider Family Medicine; Visit Provider Family Medicine
DX: R10.11 Right upper quadrant pain (principal)
CPT/HCPCS: 78227; A9537; J2805

== ENCOUNTER 2020-03-22 05:49 | Day surgery (SDC) | payer MEDICARE, BC, SELFPAY ==
--- NOTE | 2020-03-15 01:52 | HP_ITS ---
Intake Vital Signs 03/15/20 BMI 34.4 03/15/20 Height 5 ft 4 in 03/15/20 Weight: 187 lb 03/15/20 BMI 32.1 03/15/20 BP 134/86 H 03/15/20 Blood Pressure Location Rt brachial 03/15/20 Position Sitting 03/15/20 Respiration 18 03/15/20 Pulse 92 03/15/20 Pulse Source Monitor 03/15/20 Temp 97.7 F L 03/15/20 Temp Source Temporal 03/15/20 Pulse Oximetry (%) 97 03/15/20 Oxygen Delivery Method room air Intake Visit Reasons: GALLBLADDER Chief Complaint: biliary dyskinesia Laser/Electro Optics Technician Required: No Is patient in pain?: Yes Allergies clopidogrel [From Plavix] Allergy (Verified 03/15/20 13:44) Hives Medications Aspirin 81 mg PO DAILY 09/21/19 [History Confirmed 03/15/20] Hydrochlorothiazide [Hctz] 12.5 mg PO QHS 09/21/19 [History Confirmed 03/15/20] Multivit-Min/Folic Acid/Vit K1 [Multi For Her 50 Plus Softgel] 1 ea PO DAILY 09/28/19 [History Confirmed 03/15/20] calcium carbonate 600 mg calcium (1,500 mg) tablet 600 mg PO TID 03/15/20 [History Confirmed 03/15/20] cholecalciferol (vitamin D3) 125 mcg (5,000 unit) capsule 125 mcg PO DAILY 03/15/20 [History Confirmed 03/15/20] fluticasone propionate 50 mcg/actuation nasal spray,suspension 2 spray INTRANASAL DAILY 03/15/20 [History Confirmed 03/15/20] microfibril. collagen hemostat 1 gram g TOPICAL TID 03/15/20 [History] omega 0-oxb-wxg-fish oil 500 mg (200mg-300mg)-1,000 mg capsule 1 cap PO BID cap 03/15/20 [History Confirmed 03/15/20] turmeric root extract 500 mg capsule 500 mg PO DAILY cap 03/15/20 [History Confirmed 03/15/20] vitamin K2 40 mcg tablet 100 mcg PO DAILY tab 03/15/20 [History Confirmed 03/15/20] [facility] Medical History Fracture of ankle, trimalleolar, left, closed (Acute) Dislocation of left ankle joint, subsequent encounter (Acute) Abdominal pain (Acute) Arthritis (Acute) Biliary dyskinesia (Acute) History of CVA (cerebrovascular accident) (Acute) History of heart disease (Acute) Hypertension (Chronic) Surgical History History of bilateral breast biopsy (Acute) History of coronary artery stent placement (Acute) History of heart surgery (Acute) history ORIF Left ankle (Acute) Family History Sister Breast cancer Daughter Breast cancer Son Diabetes Mother Heart disease Hypertension High cholesterol Mother Heart disease High cholesterol Hypertension CVA (cerebral vascular accident) Social History (Updated 03/15/20 @ 13:[address] Acosta García MD) Smoking Status: Never smoker alcohol intake: never substance use type: does not use HPI HPI Surgical H&P: Yes HPI: AMARA MENDEZ, is a 79 F who presents to the office today for Evaluation for abdominal discomfort. Since this past mid January patient has been experiencing some right upper quadrant abdominal tenderness and some prickly sensations at times. She has had a gallbladder ultrasound which showed no pericholecystic fluid and no gallstones and she also has had a HIDA scan which showed an ejection fraction of 18%. Patient also reports that when she had a HIDA scan that reproduced her symptoms. She cannot recall anything that makes it worse or better. And she is never had these type of symptoms in the past. Patient does not normally take any time of acid suppression she has not been having any nausea or vomiting coffee-ground emesis or hematochezia. ROS General General: No weight change, appetite, fatigue, colon cancer, breast cancer or weakness HEENT HEENT: No difficulty swallowing, eye injury, eye surgery, swollen glands or hoarseness Endo Endocrine: No thyroid disease, diabetes mellitus, thyroid cancer, Hair loss, heat intolerance or cold intolerance Skin Skin: No rash or changing moles Breast Breast: No left breast lump, right breast lump, nipple discharge, breast pain, abnormal mammogram, abnormal US or breast enlargement Musc Musculoskeletal: Yes arthritis; no back problems, rheumatoid arthritis, gout or joint pain Cardio Cardiovascular: Yes heart disease, high blood pressure and heart stent; no murmur, pacemaker, atrial fibrillation, heart attack, palpitations, shortness of breat with exertion or chest pain Psych Psychiatric: No depression, anxiety or hearing voices Resp Respiratory: No shortness of breath, No sleep apnea, No cough, No COPD, No asthma, No emphysema, No wheezing Gastro Gastrointestinal: Yes abdominal pain, No nausea or vomiting, No diarrhea, No constipation, No blood in stool, No acid reflux, No hemorrhoids, No ulcers, Yes gallbladder problem, No black,tarry stools [place] Hematologic: No blood thinners, No blood disorders, No bleeding, No anemia, No blood clots Neuro Neurologic: No system reviewed and no additional complaints, except as docu, No as per HPI, No abnormal walking, No abnormal hearing, No abnormal movements, No abnormal speech, No behavioral changes, No burning sensations, No confusion, No seizure-like activity, No unsteadiness, No dizziness, No localized weakness, No frequent falls, No headache(s), No lack of coordination, No loss of vision, No memory loss, No numbness, No other visual disturbances, No radiating pain, No restless legs, No sensory deficit, No fainting, No tingling, No tremor(s), No weakness, Yes other (mild stroke) Exam Const General: no acute distress, well developed, well hydrated Orientation: oriented to person, oriented to place, oriented to time [facility] Head: normocephalic, atraumatic Ears: external ears normal Mouth: moist mucous membranes Eyes Sclera: sclerae normal Pupils: normal by confrontation Neck Neck: no lymphadenopathy noted Neck mass: No Thyroid: thyroid normal, symmetrical Chest Chest palpation & inspection: normal inspection of the chest Breast Palpation: No nipple discharge Resp Effort & Inspection: normal respiratory effort Auscultation: clear to auscultation bilaterally Percussion: percussion normal Cardio Rate: regular rate Rhythm: regular rhythm Heart Sounds: no murmurs GI Palpation: soft, no hepatosplenomegaly, no masses, tender Auscultation: normal bowel sounds Rectal Exam: other Other: Rectal exam deferred. Extrem General: normal to inspection, no clubbing, cyanosis or edema Assessment & Plan Problems 1. Biliary dyskinesia K82.8 2. Abdominal pain, RUQ R10.11 Plan Reviewed the anatomy with the patient and discussed the procedure: laparoscopic cholecystectomy with possible cholangiograms, possible open. Review risks including but not limited to bleeding, infection, hernia, bile leak, retained gallstones requiring another procedure ERCP- Endoscopic Retrograde Cholangiopancreatography, injury to another organ (bile ducts, common bile duct, small bowel, etc.) and conversion to an open procedure. All questions were answered. Coding Level of Care Code Off vis,new,level 3 Diagnoses Biliary dyskinesia K82.8 Abdominal pain, RUQ R10.11 COVID (Procedure Consent) Procedure Criteria Procedure Criteria: Yes Elective The surgeon/proceduralist and patient have discussed in detail the risk of exposure to and/or potential harm posed by the COVID-19 virus with having a surgery/procedure at this time versus the risk of? delaying the surgery/procedure. It is not possible to know either the risk of delaying the surgery or procedure or chance of getting an infection with perfect accuracy, but a joint decision was made between the patient and the surgeon/proceduralist ?to proceed at this time with the scheduled surgery/procedure as indicated on the consent form. 03/15/20 [id number] <Electronically signed by Acosta boyd MD> Date _ Acosta García MD I have re-examined the patient. There are no clinical changes since date of exam.
[2020-03-15 13:52] VITALS: BMI 34.4
--- NOTE | 2020-03-20 10:06 | EKG12_ITS ---
Test Reason : PREOP Blood Pressure : / mmHG Vent. Rate : 081 BPM Atrial Rate : 081 BPM P-R Int : 168 ms QRS Dur : 074 ms QT Int : 360 ms P-R-T Axes : 079 -33 062 degrees QTc Int : 418 ms Normal sinus rhythm Left axis deviation [id number] Inferior NE, age undetermined, cnnot be excluded Abnormal ECG Confirmed by PEDRO MAYORGA, NGUYEN ([id number]), image editor IDALMIS LERNER ([id number]) on 03/21/2020 11:07:34 AM Referred By: Acosta García Confirmed By:NGUYEN VASQUEZ MD
[2020-03-20 11:03] LABS: Prothrombin Time (Protime)PT. 12.4 SECONDS (11.7-14.9)
[2020-03-20 11:04] LABS: Partial Thromboplast Time 29.9 Seconds (24.1-36.2)
[2020-03-22] VITALS (8 sets, daily range): BP systolic 121–146; BP diastolic 60–87; PULSE 58–76; RESP 16–18; TEMP 36.1–36.6; O2SAT 98–100; BMI 31.5
[2020-03-22] MEDS: Lactated Ringers 1,000 ML 100 ML IV ×2 (07:08→10:11)
[2020-03-22] MEDS: Cefazolin 2 GM in 0.9% Normal Saline 100 ML IV (07:24)
--- NOTE | 2020-03-22 07:30 | GALL_PTH ---
PATIENT: AMARA MENDEZ LOC: [facility] [place] U#:[id number] AGE/SX: 79/F ROOM: RE03/22/[address]: Dr. Acosta García MD : 1940 BED: DIS: 03/22/2020 SPEC #: [id number] RECD: 03/22/20 10:17 STATUS: ABEL ANITA #: [id number] ROYER: 03/22/20 07:[address]: Acosta García DEPT: SURGICAL PATHOLOGY RECD BY: Jacob Lozano ENTERED: 03/22/20 11:14 SP TYPE: BANDAR FONSECA DR: Dr. Raul Enamorado MD Tissues: Gallbladder, NOS Procedures: Surgery Specimen Level III HEADER OPERATION: Robotic assisted laparoscopic cholecystectomy PRE-OP DIAGNOSIS: Biliary dyskinesia; RUQ abdominal pain TISSUE SUBMITTED: Gallbladder MICROSCOPIC DIAGNOSIS Gallbladder, cholecystectomy: Chronic cholecystitis. AM:grant 03/23/20 MICROSCOPIC DESCRIPTION Slides are reviewed. GROSS DESCRIPTION Received is one container labeled with the patient's name and designated gallbladder. The specimen consists of a gallbladder measuring 6 x 3 x 1 cm. The external surface is smooth and glistening. Focally, it is granular, hemorrhagic and contains cautery artifact. The lumen of the gallbladder contains yellow-green mucoid bile. No stones are identified in the container or in the gallbladder. The mucosa is bile-stained and without any mass lesions. The gallbladder wall averages 0.2 cm in thickness and is free of mass lesions. Line Up Worker sections of the gallbladder and the cystic duct at margin of resection are submitted in one cassette. / AM:grant 03/22/20 TC:3 CPT: 59781
--- NOTE | 2020-03-22 07:42 | PCM.OPRPT ---
Problem List (1) Biliary dyskinesia Status: Acute Report of Operation Date of Procedure: 03/22/20 Pre-Operative Diagnosis: Biliary dyskinesia Post-Operative Diagnosis: Same Surgery/Procedure Performed:: Robotic assisted laparoscopic cholecystectomy Type of Anesthesia:: General Anesthesiologist: Dio Ng Specimen's removed: Gallbladder Estimated Blood Loss (mL): < 25 CC Description of Procedure: Patient was brought into the operating room. Placed in the supine position. Under excellent general trach intubation bed was placed in the head up and rotated to the left position and sterilely prepped and draped in usual fashion. Local was injected above the umbilicus dissection was carried down to the fascia fascia was grasped with a [place] varies needle was placed inside the abdomen the abdomen was insufflated 15 torr a 10/12 trocar was placed without difficulty it was flank by 2 #8 trochars placed under direct visualization and then further laterally #5 trocar placed under direct visualization. The robot was brought in and docked appropriately. The gallbladder was grasped with a retractor and retracted in cephalad direction. I then went to the robot and was able to dissect moderate amount of adhesions off of the gallbladder itself I dissected the cystic artery free first and placed hemoclips proximally and distally. I then dissected the cystic duct free and placed hemoclips proximally and distally and ligated the duct. I deliver the gallbladder from the gallbladder bed with use of electrocautery I had no spillage of bile. I inspected the liver bed I had good in the stasis. The robot was undocked. The specimen was placed in a specimen bag delivered through the umbilical port without difficulty. Many trochars were removed without difficulty. Fascia the umbilical port was closed with a [id number] stitch of 0 Vicryl. Skin incisions were closed with subcuticular stitches of 4-0 Monocryl. Steri-Strips were applied sterile dressings were applied and the patient tolerated the procedure well. - Admit VTE Documentation VTE Present on Admission: No VTE Mechan Device Prophylaxis: SCD's VTE Pharm Prophylaxis ordered?: No Reason prophylaxis not ordered:: Treatment Not Indicated [id number]: [id number] Laparoscopic cholecystectomy
--- NOTE | 2020-03-22 07:44 | DCINST_ITS ---
Discharge Diet: Light diet - advance as tolerated Discharge Activity: May Not Drive - for 2-3 days or while taking narcotic pain medications., - - Do not drive, work heavy equipment or sign legal documents for 24 hours. May shower in (days): 1 - with the bandage in place. Additional Activity Instructions:: Pain medication may cause nausea. You should typically eat light foods as you take your pain medications. Pain medication may also cause constipation. If this is a problem for you, please discuss with your doctor. Call your doctor if your incision/area has: Continuous Slow Oozing, Sudden Increased Bleeding, Increased Pain/ Swelling, Increased Redness, Foul Smelling Discharge Call your doctor if you observe: Fever of 101 or Higher Suture Line Care: Avoid Pulling/Pushing, Avoid Pinching/Bending Additional Dressing/Incision Instructions:: Leave operative bandaids on for 2 days. When you remove dressing, leave Steri-Strips on until your follow-up appointment, or until the Steri-Strips fall off on their own. Allergies/Adverse Reactions: Allergies clopidogrel [From Plavix] Allergy (Verified 03/22/20 06:19) Hives Medications to take at Discharge Aspirin 81 mg PO DAILY 09/21/19 Hydrochlorothiazide [Hctz] 12.5 mg PO QHS 09/21/19 Multivit-Min/Folic Acid/Vit K1 [Multi For Her 50 Plus Softgel] 1 ea PO DAILY 09/28/19 calcium carbonate 600 mg calcium (1,500 mg) tablet 600 mg PO TID 03/15/20 cholecalciferol (vitamin D3) 125 mcg (5,000 unit) capsule 125 mcg PO DAILY 03/15/20 fluticasone propionate 50 mcg/actuation nasal spray,suspension 2 spray INTRANASAL DAILY 03/15/20 microfibril. collagen hemostat 1 gram 1 g TOPICAL TID 03/15/20 omega 2-qfx-ewc-fish oil 500 mg (200mg-300mg)-1,000 mg capsule 1 cap PO BID cap 03/15/20 turmeric root extract 500 mg capsule 500 mg PO DAILY cap 03/15/20 vitamin K2 40 mcg tablet 100 mcg PO DAILY tab 03/15/20 Primary Care Physician: Raul Enamorado MD [Primary Care Provider] - Test Results: Test results from this visit will be discussed in further detail at your follow- up appointment, if applicable. Please Follow Up With: Acosta García MD - Please call [phone] to schedule an appointment. When: 7 days after your surgery.
[2020-03-22] MEDS: Bupivacaine Mpf 0.5% 30 ML VIAL (08:30)
[2020-03-22] MEDS: Acetaminophen 325 MG Tablet PO (10:58)
[2020-03-22] MEDS: oxyCODONE 5 MG Tablet PO (10:58)
== END 2020-03-22 11:19 | disposition home or self-care (01) ==
LOC: SDC 05:50 → AC 05:50
PROVIDERS: Anesthesiology; PCP Family Medicine; Referring Provider Surgery; Visit Provider Surgery
PROC: 0FT44ZZ Resection of Gallbladder, Percutaneous Endoscopic Approach (ICD-10-PCS; CPT 47562; principal; 2020-03-22 07:10)
DX: K81.1 Chronic cholecystitis (principal); K82.8 Other specified diseases of gallbladder; R10.11 Right upper quadrant pain; Z79.82 Long term (current) use of aspirin; I10 Essential (primary) hypertension; Z86.73 Personal history of transient ischemic attack (TIA), and cerebral infarction without residual deficits; Z11.59 Encounter for screening for other viral diseases
CPT/HCPCS: 47562; 36415; 85610; 85730; 87635; 88304; 93005; 94799; J7120; J2405; U0003

== ENCOUNTER → 2021-03-05 10:59 | Outpatient (CLI) | payer MEDICARE, BC, SELFPAY ==
[2021-02-20 14:55] VITALS: BMI 31.7
[2021-03-05 12:42] LABS: AST(SGOT) 21 U/L (15-37); Alanine Aminotransfer ALT/SGPT 28 U/L (13-56); Albumin, Serum 3.7 g/dL (3.2-5.0); Alkaline Phosphatase 80 U/L (45-117); Bilirubin, Direct 0.22 mg/dL (0.00-0.30); Cholesterol 178 mg/dL (200); Globulin 3.3 g/dL (2.2-4.2); High Density Lipoprotein 75 mg/dL; Triglycerides 83 mg/dL; Very Low Density Lipoprotein 17 mg/dL (5-40)
== END ==
PROVIDERS: Referring Provider Internal Medicine Cardiovascular Disease; Visit Provider Internal Medicine Cardiovascular Disease
DX: E78.5 Hyperlipidemia, unspecified (principal); I10 Essential (primary) hypertension
CPT/HCPCS: 36415; 80061; 80076

== ENCOUNTER → 2021-03-06 07:08 | Outpatient (CLI) | payer MEDICARE, BC, SELFPAY ==
[2021-02-20 14:55] VITALS: BMI 31.7
--- NOTE | 2021-03-06 13:19 | STRESSREP ---
Stress Test Report Exercise myocardial perfusion stress test. 80-year-old lady with a history of coronary artery disease status post stenting of the right coronary artery in 2016. Stress protocol: Resting EKG demonstrates normal sinus rhythm with a rate of 68 bpm. Resting blood pressure is 110/68 mmHg. The patient exercised according to regular Jordan protocol for total duration of 6 minutes. The maximum heart rate attained was 139 bpm which was 97% of maximum predicted heart rate. The maximum workload was 7.2 metabolic equivalents. At rest there were no ST or T wave changes noted to suggest ischemia and at peak exercise upsloping ST changes were noted with did not meet the criteria for ischemia. No clinical angina was noted the test was terminated due to the target heart rate being achieved and fatigue. The maximum blood pressure was 150/66 mmHg. Myocardial perfusion protocol. 10.6 mCi of technetium 99m sestamibi was injected at rest. The patient exercised according to regular Jordan protocol. At peak exercise 32.9 mCi of technetium 99m sestamibi was injected stress images were obtained stress and rest images were reconstructed and compared in the short axis vertical long and horizontal long axis. Gated images were also obtained. Perfusion SPECT analysis: Review of the stress images demonstrate normal uptake of tracer noted in all areas of the myocardium. No areas of reversibility are noted to suggest ischemia. The resting images demonstrate normal uptake of tracer noted in all areas of the myocardium. No previous infarct is noted. Gated SPECT analysis: The gated ejection fraction is more than 80%. Conclusion: Normal exercise myocardial perfusion stress test at a moderate workload. Preserved ejection fraction.
== END ==
PROVIDERS: Referring Provider Internal Medicine Cardiovascular Disease; Visit Provider Internal Medicine Cardiovascular Disease
DX: I25.10 Atherosclerotic heart disease of native coronary artery without angina pectoris (principal); Z95.5 Presence of coronary angioplasty implant and graft
CPT/HCPCS: 78452; 93017; A9500; A4216

== ENCOUNTER → 2022-04-18 | Outpatient (CLI) | payer MEDICARE, BC, SELFPAY ==
[2022-04-18 09:54] LABS: Absolute Lymphocyte Count 1.88 X10^3/uL (0.83-4.51); Absolute Neutrophil Count 2.5 X10^3/uL (2.0-7.7); Basophil# 0.04 X10^3/uL; Basophil% 0.8 % (0-1); Hematocrit 42.5 % (37-47); Hemoglobin 14.1 g/dL (12.0-15.0); Lymphocyte # 1.88 X10^3/ul (0.83-4.51); Lymphocyte % 37.8 % (19-41); Mean Corp Hgb Conc 33.2 g/dL (32-36); Mean Corpuscular Hgb 29.3 pg (27.0-32.0); Mean Corpuscular Volume 88.2 fL (81-99); Mean Platelet Vol. 9.8 fl (6.2-12.0); NRBC Flagged by Analyzer 0 % (0-5); Neutrophil # 2.45 X10^3/uL (2.7-7.7); Neutrophil % 49.2 % (47-70); Platelet Count 241 K/mm3 (150-450); RBC Distribution Width CV 13.3 % (11.6-14.6); RBC Distribution Width SD 43.2 fl (35.1-43.9); Red Blood Count 4.82 M/mm3 (4.2-5.4)
[2022-04-18 10:18] LABS: AST(SGOT) 16 U/L (15-37); Alanine Aminotransfer ALT/SGPT 20 U/L (13-56); Albumin, Serum 3.5 g/dL (3.2-5.0); Alkaline Phosphatase 69 U/L (45-117); Bilirubin, Direct 0.22 mg/dL (0.00-0.30); Cholesterol 217 mg/dL (200); Globulin 3.5 g/dL (2.2-4.2); High Density Lipoprotein 87 mg/dL; Triglycerides 91 mg/dL; Very Low Density Lipoprotein 18 mg/dL (5-40)
[2022-04-18 10:20] LABS: Vitamin D,25 Hydroxy 69.7 ng/mL
[2022-04-18 10:26] LABS: Anion Gap 6 (5-15); BUN 15 mg/dL (7-18); BUN/Creat Ratio 16.6 RATIO (10-20); Calcium,Total 9.5 mg/dL (8.5-10.1); Chloride 105 mmol/L (98-107); EST Glomerular Filtration Rate 64 mL/min (>60); Est Glom Filt Rate - Afr Amer 77 mL/min (>60); Glucose 91 mg/dL (74-106); Potassium 3.8 mmol/L (3.5-5.1); Sodium Level 141 mmol/L (136-145)
== END | disposition home or self-care (01) ==
LOC: LAB 09:25
PROVIDERS: Internal Medicine Cardiovascular Disease; PCP Internal Medicine; Visit Provider Internal Medicine
DX: E78.00 Pure hypercholesterolemia, unspecified (principal); E78.5 Hyperlipidemia, unspecified; M85.80 Other specified disorders of bone density and structure, unspecified site; I10 Essential (primary) hypertension
CPT/HCPCS: 36415; 80048; 80061; 80076; 82306; 85025

== ENCOUNTER → 2023-05-04 | Outpatient (CLI) | payer MEDICARE, BC, SELFPAY ==
[2023-05-04 10:52] LABS: AST(SGOT) 16 U/L (15-37); Alanine Aminotransfer ALT/SGPT 22 U/L (13-56); Albumin, Serum 3.5 g/dL (3.2-5.0); Alkaline Phosphatase 85 U/L (45-117); Bilirubin, Direct 0.24 mg/dL (0.00-0.30); Cholesterol 227 mg/dL (200); Globulin 3.3 g/dL (2.2-4.2); High Density Lipoprotein 85 mg/dL; Protein, Total 6.8 g/dL (6.4-8.2); Triglycerides 97 mg/dL; Very Low Density Lipoprotein 19 mg/dL (5-40)
== END | disposition home or self-care (01) ==
LOC: LAB 09:35
PROVIDERS: PCP Internal Medicine; Referring Provider Internal Medicine Cardiovascular Disease; Visit Provider Internal Medicine Cardiovascular Disease
DX: I10 Essential (primary) hypertension (principal); Z95.5 Presence of coronary angioplasty implant and graft; E78.00 Pure hypercholesterolemia, unspecified; I25.10 Atherosclerotic heart disease of native coronary artery without angina pectoris
CPT/HCPCS: 36415; 80061; 80076

== ENCOUNTER → 2023-09-30 | Outpatient (CLI) | payer MEDICARE, BC, SELFPAY ==
[2023-09-30 15:30] LABS: Absolute Lymphocyte Count 1.69 X10^3/uL (0.83-4.51); Absolute Neutrophil Count 3.1 X10^3/uL (2.0-7.7); Basophil# 0.05 X10^3/uL; Basophil% 0.9 % (0-1); Eosinophil# 0.08 X10^3/uL; Eosinophils% 1.5 % (0-5); Hematocrit 42.8 % (37-47); Hemoglobin 13.9 g/dL (12.0-15.0); Lymphocyte # 1.69 X10^3/ul (0.83-4.51); Lymphocyte % 31.4 % (19-41); Mean Corp Hgb Conc 32.5 g/dL (32-36); Mean Corpuscular Volume 89.2 fL (81-99); Mean Platelet Vol. 10.2 fl (6.2-12.0); Monocyte# 0.45 X10^3/uL; Monocyte% 8.4 % (0-10); NRBC Flagged by Analyzer 0 % (0-5); Neutrophil # 3.09 X10^3/uL (2.7-7.7); Neutrophil % 57.4 % (47-70); Platelet Count 237 K/mm3 (150-450); RBC Distribution Width CV 12.9 % (11.6-14.6); RBC Distribution Width SD 42.3 fl (35.1-43.9); White Blood Count 5.4 K/mm3 (4.4-11.0)
[2023-09-30 16:16] LABS: Vitamin D,25 Hydroxy 70.5 ng/mL
[2023-09-30 16:26] LABS: Anion Gap 4 (5-15); BUN 17 mg/dL (7-18); Calcium,Total 10.2 mg/dL (8.5-10.1); Chloride 105 mmol/L (98-107); Creatinine, Serum 0.94 mg/dL (0.55-1.02); EST Glomerular Filtration Rate 60 mL/min (>60); Est Glom Filt Rate - Afr Amer 73 mL/min (>60); Glucose 120 mg/dL (74-106); Sodium Level 138 mmol/L (136-145)
--- OUTSIDE RECORDS SUMMARY | 2023-09-30 17:58 | XMS RPT_ITS | CCD ---
Author Name Unknown Address [address] [place] [address] [address] [place] [address] Organization [facility] Care Team Providers Care Assistant County Engineer Name Role Phone PROVIDER, UNKNOWN Unavailable Unavailable PROVIDER, UNKNOWN Unavailable Unavailable Kelsea, Raul Unavailable Unavailable Problems Problem Classification Problem Date Documented Da te Episodic/Chronic Other bone disease and musculoskeletal deformities (2 sources) Other specified disorders of bone density and structure, unspecified site; Translations: [Oth disrd of bone density and structure, unspecified site] Onset: 06-02-2018 Episodic Unclassified (2 sources) Asymptomatic menopausal state; Translations: [Asymptomatic menopausal state] Onset: 06-02-2018 Episodic Results Test Name Value Interpretation Reference Range Facil ity Encounters Encounter Date Encounter Type Care Provider Facility Start: 06-02-2018 Patient encounter UNKNOWN PROVIDER S [facility] Payers Date Payer Category Payer Medicare 1940 Unknown [id number] Unknown Summary Purpose Family History No Family History Records Found Advance Directives No Advanced Directives Records Found Additional Source Comments INFORMATION SOURCE (unrecogn ized section and content) FOR RECORDS PERTAINING TO PATIENTS WHO ARE OR HAVE BEEN ENROLLED IN A CHEMICAL DEPENDENCY/SUBSTANCEABUSE PROGRAM, SOME INFORMATION MAY BE OMITTED. This clinical summary was aggregated from multiple sources. Caution should be exercised in using it in the provision of clinical care. This summary normalizes information from multiple sources, and as a consequence, information in this document may materially change the coding, format and clinical context of patient data. In addition, data may be omitted in some cases. CLINICAL DECISIONS SHOULD BE BASED ON THE PRIMARY CLINICAL RECORDS. [employer] [facility]. provides no warranty or guarantee of the accuracy or completeness of information in this document.
== END | disposition home or self-care (01) ==
LOC: BIMLAB 14:18
PROVIDERS: PCP Internal Medicine; Visit Provider Internal Medicine
DX: M85.80 Other specified disorders of bone density and structure, unspecified site (principal); I10 Essential (primary) hypertension
CPT/HCPCS: 36415; 80048; 82306; 85025

== ENCOUNTER → 2025-06-15 | Outpatient (CLI) | payer MEDICARE, BC, SELFPAY ==
[2025-06-15 14:46] LABS: Hematocrit 42.2 % (37-47); Hemoglobin 14.4 g/dL (12.0-15.0); Immature Granulocytes Count 0.010 X10^3/uL (0.0-0.0); Mean Corp Hgb Conc 34.1 g/dL (32-36); Mean Corpuscular Volume 86.7 fL (81-99); Mean Platelet Vol. 9.7 fl (6.2-12.0); NRBC Flagged by Analyzer 0 % (0-5); Platelet Count 238 K/mm3 (150-450); RBC Distribution Width CV 13.5 % (11.6-14.6); RBC Distribution Width SD 43.1 fl (35.1-43.9); Red Blood Count 4.87 M/mm3 (4.2-5.4); White Blood Count 7.5 K/mm3 (4.4-11.0)
[2025-06-15 15:29] LABS: Bilirubin, Direct 0.32 mg/dL (0.00-0.30)
[2025-06-15 15:48] LABS: AST(SGOT) 18 U/L (<=31); Alanine Aminotransfer ALT/SGPT 14 U/L (<=34); Albumin, Serum 4.0 g/dL (3.4-4.8); Alkaline Phosphatase 92 U/L (35-104); Anion Gap 9 (5-15); BUN 16 mg/dL (4-19); BUN/Creat Ratio 18.7 RATIO (10-20); Calcium,Total 9.5 mg/dL (7.6-11.0); Carbon Dioxide 27.4 mmol/L (21.0-32.0); Chloride 102 mmol/L (98-108); Cholesterol 196 mg/dL (<=200); Globulin 2.9 g/dL (2.2-4.2); Glucose 112 mg/dL (70-99); Low Density Lipoprotein Calc. 106 mg/dL; Potassium 3.8 mmol/L (3.3-5.1); Triglycerides 100 mg/dL; Very Low Density Lipoprotein 20 mg/dL (5-40); Vitamin D,25 Hydroxy 38.0 ng/mL (30-100); cholesterol:hdl ratio screen 2.71
== END | disposition home or self-care (01) ==
LOC: LAB 13:56
PROVIDERS: PCP Internal Medicine; Referring Provider Internal Medicine Cardiovascular Disease; Visit Provider Internal Medicine Cardiovascular Disease
DX: I10 Essential (primary) hypertension (principal); I25.10 Atherosclerotic heart disease of native coronary artery without angina pectoris; M85.80 Other specified disorders of bone density and structure, unspecified site; R73.03 Prediabetes
CPT/HCPCS: 36415; 80053; 80061; 82248; 82306; 83036; 84443; 85025

== ENCOUNTER → 2025-07-07 | Outpatient (CLI) | payer MEDICARE, BC, SELFPAY ==
--- NOTE | 2025-07-07 07:07 | ECHOD_ITS ---
Reason For Study Reason For Study: CAD/ASHD Procedure This was a 2D Doppler, Color Flow transthoracic echocardiogram. Exam performed in department. Left Ventricle Normal LV size. Left ventricular systolic function is normal. The left ventricular ejection fraction is 65 %. Stage 1 diastolic dysfunction. No regional wall motion abnormalities noted. Right Ventricle Normal RV size. Normal systolic function. Atria Normal left atrium. Normal right atrium. Mitral Valve Normal mitral valve. Tricuspid Valve Normal tricuspid valve. Mild (1+) tricuspid valve insufficiency. Pulmonary artery systolic pressure is 28 mmHg. Aortic Valve Normal aortic valve. Trisinus/trileaflet aortic valve. Pulmonic Valve Normal pulmonic valve. Great Vessels Normal aortic root. The pulmonary artery is normal size. Inferior vena cava collapse with respiration. Pericardium/Pleural No pericardial effusion. MMode/2D Measurements & Calculations LVIDd: 4.5 cm IVSd: 0.75 cm Ao root diam: 3.3 cm LVIDs: 2.5 cm LVPWd: 0.89 cm RVDd: 3.4 cm FS: 45.4 % LAV(MOD-bp): 40.6 ml LVAd ap4: 22.8 cm2 SV(MOD-sp4): 38.7 ml LAV(MOD-bp) Indexed: 21.8 ml/m2 LVLd ap4: 7.2 cm SI(MOD-sp4): 20.8 ml/m2 LAV(MOD-sp2): 40.3 ml EDV(MOD-sp4): 61.1 ml LAV(MOD-sp4): 39.6 ml EDV(sp4-el): 61.2 ml LVAs ap4: 12.3 cm2 LVLs ap4: 5.9 cm ESV(MOD-sp4): 22.3 ml ESV(sp4-el): 21.7 ml EF(MOD-sp4): 63.4 % EF(sp4-el): 64.5 % SV(sp4-el): 39.4 ml LA A4 area: 15.8 cm2 LA dimension(2D): 3.3 cm RA A4 area: 12.7 cm2 TAPSE: 1.6 cm Time Measurements MV dec time: 0.18 sec Doppler Measurements & Calculations MV E max ryan: 91.9 cm/sec Lat Peak E' Ryan: 9.3 cm/sec Med Peak E' Ryan: 7.8 cm/sec MV A max ryan: 101.7 cm/sec E/E' lat: 9.9 E/E' med: 11.8 MV E/A: 0.90 MV V2 max: 106.1 cm/sec MV P1/2t max ryan: 93.2 cm/sec Ao V2 max: 117.1 cm/sec MV max P.5 mmHg MV P1/2t: 54.3 msec Ao max P.5 mmHg MV V2 mean: 51.8 cm/sec Ao V2 mean: 84.3 cm/sec MV mean P.3 mmHg MV dec slope: 502.6 cm/sec2 Ao mean P.2 mmHg MV V2 VTI: 30.0 cm MVA(P1/2t): 4.1 cm2 Ao V2 VTI: 30.6 cm AV (velocity ratio): 0.66 LV V1 max: 86.8 cm/sec PA V2 max: 241.4 cm/sec TR max ryan: 244.8 cm/sec LV V1 max P.0 mmHg TR max P.0 mmHg LV V1 mean P.7 mmHg LV V1 mean: 62.9 cm/sec LV V1 VTI: 20.2 cm ECHO/Echo Complete Interpretation Summary Normal LV size. Left ventricular systolic function is normal. The left ventricular ejection fraction is 65 %. Stage 1 diastolic dysfunction. Pulmonary artery systolic pressure is 28 mmHg. Ordering Physician: Jaydon Caceres Referring Physician: Jaydon Caceres Performed By: Mario Brown RCS
--- OUTSIDE RECORDS SUMMARY | 2025-07-07 07:28 | XMS RPT_ITS | CCD ---
Author Organization [facility] Inform ion [facility] Care Team Providers Care Retirement Administrator Name Role Phone PROVIDER, UNKNOWN Unavailable Unavailable PROVIDER, UNKNOWN Unavailable Unavailable Kelsea, Raul Unavailable Unavailable Care Physician, No Primary Primary Care Provider Unavailable Care Physician, No Primary Referring Provider Un available Dr. Jenna Staples Attending Provider Mini SLIDE FORMING MACHINE OPERATOR, MIKAYLA Whaley Attending Provider [phone] Dr. Jenna Staples Primary Care Provider Dr. Jenna Staples Attending Provider Dr. Jenna Staples Referring Provider Weston Luna Attending Unavailable Bel, Jenna Primary Care Unavailable [place], Jenna Referring Unavailable [place], Jenna Primary Care Unavailable Nicki, Alberton Attending Unavailable Nicki, Jaydon Referring Unavailable Bel, Jenna Primary Care Unavailable Nicki, Alberton Attending Unavailable Nicki, Jaydon Referring Unavailable Bel, Jenna Primary Care Unavailable Bel, Jenna Attending Unavailable Bel, Jenna Referring Unavailable Nicki, Alberton Attending Unavailable [place], Jenna Primary Care Unavailable Bel, Jenna Referring Unavailable Allergies Allergy Classification Reported Allergen(s) Allergy Type Date of Onset Reaction(s) Facility (2 sources) clopidogrel Drug Allergy 04-14-2022 Hives [facility] (3 sources) Seasonal Allergies: Uncoded; Translations: [Seasonal Allergies: Uncoded] Allergy to substance 04-14-2022 Itching [facility] (1 source) clopidogrel Drug Allergy 06-15-2025 [facility] Repository Medications Current Medications Medication Drug Class(es) Dates Sig (Normalized) Sig (Original) aspirin 81 mg chewable tablet (2 sources) Platelet Aggregation Inhibitor, Nonsteroidal Anti-inflammatory Drug Start: 09-21-2019 take 81 mg by mouth once daily Aspirin Active 81 MG PO DAILY September 21, 2019 12:00am calcium carbonate 1500 mg oral tablet (2 sources) Start: 03-15-2020 take 600 mg by mouth three times daily Calcium Carbonate Active 600 MG PO THREE TIMES A DAY March 14, 2020 11:00pm cholecalciferol 0.125 mg oral capsule (2 sources) Vitamin D Start: 03-15-2020 take 125 ug by mouth once daily Cholecalciferol (Vitamin D3) Active 125 MCG PO DAILY March 14, 2020 11:00pm Kqpizwla-Djfhwe-Tzodv bic Acid (2 sources) Start: 02-13-2022 Hbtyiaax-Azdnon-Plpc rbic Acid Active 0 PO .COMPLEX February 12, 2022 11:00pm orally bid; Start: 02-13-2022 Collagen-Bioti n-Ascorbic Acid Active 0 PO .COMPLEX February 13, 2022 12:00am orally bid; fluticasone propionate 0.05 mg/actuat metered dose nasal spray (6 sources) Corticosteroid Start: 03-15-2020 End: 09-28-2023 take 1 spray(s) nasal route once daily Fluticasone Propionate Active 2 SPRAY INTRANASAL DAILY 48 September 28, 2023 7:48am administer into each nostril hydroCHLOROthiazide 12.5 mg oral tablet (14 sources) Thiazide Diuretic Start: 02-12-2021 End: 09-29-2023 take 12.5 mg by mouth once daily Hydrochlorothiazide Active 12.5 MG PO DAILY September 29, 2023 4:33pm Start: 09-21-2019 End: 02-12-2021 take 12.5 mg by mouth at bedtime Hydrochlorothiazide Discontinued 12.5 MG PO AT BEDTIME September 21, 2019 12:00am February 12, 2021 11:11am Yagltlgc-Hdy-Vygtc Acid-Vit K (2 sources) Start: 09-28-2019 Udsmjplp-Eft-T olic Acid-Vit K Active 1 EACH PO DAILY September 28, 2019 12:00am Start: 09-28-2019 Rvzslrsn-Ewm-M olic Acid-Vit K Active 1 EACH PO DAILY September 28, 2019 1:00am niacin 50 mg oral tablet (2 sources) Nicotinic Acid Start: 02-13-2022 take 50 mg by mouth once daily Niacin Active 50 MG PO DAILY February 12, 2022 11:00pm [place]-3 Fatty Acids (2 sources) Start: 02-12-2021 take 1000 mg by mouth three times daily [place]-3 Fatty Acids Active 1000 MG PO THREE TIMES A DAY February 11, 2021 11:00pm Start: 02-12-2021 take 1000 mg by mout h three times daily [place]-3 Fatty Acids Active 1000 MG PO THREE TIMES A DAY February 12, 2021 12:00am Turmeric Root Extract (4 sources) Start: 03-15-2020 take 500 mg by mouth once daily Turmeric Root Extract Active 500 MG PO DAILY March 15, 2020 12:48pm Start: 03-15-2020 take 500 mg by mouth once daily Turmeric Root Extract Active 500 MG PO DAILY March 15, 2020 1:48pm Start: 09-28-2019 End: 03-15-2020 take 500 mg by mouth twice daily Turmeric Root Extract Discontinued 500 MG PO TWICE A DAY September 28, 2019 12:00am March 15, 2020 12:52pm Start: 09-28-2019 End: 03-15-2020 take 500 mg by mouth twice daily Turmeric Root Extract Discontinued 500 MG PO TWICE A DAY September 28, 2019 1:00am March 15, 2020 1:52pm vitamin k2 0.1 mg oral capsule (4 sources) Start: 02-12-2021 take 100 ug by mouth once daily Vitamin K2 Active 100 MCG PO DAILY February 11, 2021 11:00pm Start: 03-15-2020 End: 02-12-2021 take 100 ug by mouth once daily Vitamin K2 Discontinued 100 MCG PO DAILY March 14, 2020 11:00pm February 12, 2021 11:16am Completed/Discontinued Medications Medication Drug Class(es) Dates Sig (Normalized) Sig (Original) acetaminophen 325 mg / oxyCODONE hydrochloride 5 mg oral tablet (2 sources) Opioid Agonist Start: 09-21-2019 End: 09-24-2019 take 1 tablet by mouth every six hours as needed Oxycodone-Acetamino phen Discontinued 1 TABLET PO EVERY 6 HOURS NEEDED 12 September 21, 2019 September 24, 2019 12:09am Calcium Carb-Vitamin D3-Vit K2 (2 sources) Start: 09-28-2019 End: 03-15-2020 Calcium Carb-Vitamin D3-Vit K2 Discontinued 1 EACH PO TWICE A DAY September 28, 2019 12:00am March 15, 2020 12:46pm Start: 09-28-2019 End: 03-15-2020 Calcium Carb-Vitamin D3-Vit K2 Discontinued 1 EACH PO TWICE A DAY September 28, 2019 1:00am March 15, 2020 1:46pm calcium carbonate 1500 mg / cholecalciferol 800 unt oral tablet (2 sources) Vitamin D Start: 09-28-2019 End: 03-15-2020 Calcium Carbonate-Vitamin D3 Discontinued 1 EACH PO TWICE A DAY September 28, 2019 12:00am March 15, 2020 12:46pm Collagen (2 sources) Start: 09-28-2019 End: 03-15-2020 take 1 tablet by mouth twice daily Collagen (Bovine) Discontinued 1 TABLET PO TWICE A DAY September 28, 2019 12:00am March 15, 2020 12:46pm Start: 09-28-2019 End: 03-15-2020 take 1 tablet by mouth twice daily Collagen (Bovine) Discontinued 1 TABLET PO TWICE A DAY September 28, 2019 1:00am March 15, 2020 1:46pm microfibril. collagen hemostat 1 gram (2 sources) Start: 03-15-2020 End: 02-12-2021 apply 1 g topically three times daily microfibril. collagen hemostat 1 gram Discontinued 1 GM TOPICAL THREE TIMES A DAY March 14, 2020 11:00pm February 12, 2021 11:14am Start: 03-15-2020 End: 02-12-2021 apply 1 g topically three times daily microfibril. collagen hemostat 1 gram Discontinued 1 GM TOPICAL THREE TIMES A DAY March 15, 2020 12:00am February 12, 2021 12:14pm [place] 2-Iah-Vqb-Fish Oil (4 sources) Start: 03-15-2020 End: 02-12-2021 take 1 capsule by mouth twice daily [place] 6-Cxc-Obo-Fish Oil Discontinued 1 CAP PO TWICE A DAY March 15, 2020 12:47pm February 12, 2021 11:14am Start: 03-15-2020 End: 02-12-2021 take 1 capsule by mouth twice daily [place] 8-Lak-Rmc-Fish Oil Discontinued 1 CAP PO TWICE A DAY March 15, 2020 1:47pm February 12, 2021 12:14pm Start: 09-28-2019 End: 03-15-2020 [place] 1-Pku-Kej-Fish Oil Dis continued 1 EACH PO THREE TIMES A DAY September 28, 2019 12:00am March 15, 2020 12:52pm Start: 09-28-2019 End: 03-15-2020 [place] 6-Wik-Brp-Fish Oil Dis continued 1 EACH PO THREE TIMES A DAY September 28, 2019 1:00am March 15, 2020 1:52pm ondansetron 4 mg disintegrating oral tablet (2 sources) Serotonin-3 Receptor Antagonist Start: 09-21-2019 End: 09-25-2019 take 4 mg by mouth every eight hours as needed Ondansetron Discontinued 4 MG PO EVERY 8 HOURS NEEDED 05 20September 21, 2019 12:00am September 25, 2019 12:09am Problems Active Problems Problem Classification Problem Date Documented Da te Episodic/Chronic Administrative/social admission (1 source) Persons encountering health services in other specified circumstances; Translations: [Other reasons for seeking consultation] Episodic Biliary tract disease (4 sources) Biliary dyskinesia; Translations: [Other specified diseases of gallbladder] 02-12-2021 Episodic Coronary atherosclerosis and other heart disease (7 sources) Coronary atherosclerosis; Translations: [Atherosclerotic heart disease of [place] coronary artery without angina pectoris] Onset: 11-29-2024 Chronic Coronary atherosclerosis and other heart disease (2 sources) Presence of coronary angioplasty implant and graft; Translations: [Percutaneous transluminal coronary angioplasty status] Onset: 04-03-2016 Episodic Disorders of lipid metabolism (3 sources) Hyperlipidemia; Translations: [Hyperlipidemia, unspecified] Chronic Essential hypertension (6 sources) Essential hypertension; Translations: [Essential (primary) hypertension] Onset: 06-28-2025 Chronic Fracture of lower limb (2 sources) Closed trimalleolar fracture; Translations: [Displaced trimalleolar fracture of left lower leg, initial encounter for closed fracture] 02-12-2021 Episodic Fracture of lower limb (2 sources) Closed trimalleolar fracture; Translations: [Displaced trimalleolar fracture of right lower leg, initial encounter for closed fracture] 09-22-2019 Episodic Joint disorders and dislocations; trauma-related (2 sources) Dislocation of left ankle joint, subsequent encounter; Translations: [Dislocation of left ankle joint, subsequent encounter] 02-12-2021 Episodic Other bone disease and musculoskeletal deformities (2 sources) Osteopenia; Translations: [Other specified disorders of bone density and structure, unspecified site] 09-30-2023 Episodic Other upper respiratory disease (2 sources) Seasonal allergy; Translations: [Other seasonal allergic rhinitis] 02-13-2022 Chronic Other upper respiratory disease (2 sources) Other seasonal allergic rhinitis; Translations: [Allergic rhinitis, cause unspecified] Chronic Residual codes; unclassified (1 source) Procedure and treatment not carried out because of patient's decision for unspecified reasons; Translations: [Surgical or other procedure not carried out because of patient's decision] Episodic Unclassified (2 sources) Asymptomatic menopausal state; Translations: [Asymptomatic menopausal state] Onset: 06-02-2018 Episodic Past or Other Problems Problem Classification Problem Date Documented Da te Episodic/Chronic Diabetes mellitus without complication (1 source) Prediabetes; Translations: [Prediabetes] Onset: 11-29-2024 Episodic Other bone disease and musculoskeletal deformities (5 sources) Other specified disorders of bone density and structure, unspecified site; Translations: [Disorder of bone and cartilage, unspecified] Onset: 06-02-2018 Episodic Results Test Name Value Interpretation Reference Range Facility Bilirubin, Directon 06-15- 25 Bilirubin.direct [Mass/Vol] 0.32 mg/dL High 0.00-0.30 [facility] Comment on above: Performed By: #### L 501.4708 #### [facility] [address] [place], [place], [id number] CBC W/Diff, Automatedon 10-3 Absolute Lymph 1.68 X10 3/uL Normal 0.83-4.51 [facility] Comment on above: Order Comment: CC TO Performed By: #### L 500.4100, L500.4050, L100.0100, L501.9985, L501.9520, L506.1001 #### [facility] [address] [place], [address] Absolute Neut 5.0 X10 3/uL Normal 2.0-7.7 [facility] Comment on above: Order Comment: CC TO Performed By: #### L 500.4100, L500.4050, L100.0100, L501.9985, L501.9520, L506.1001 #### [facility] [address] [place], [address] Basophils/100 WBC (Bld) 0.5 % Normal 0-1 [facility] Comment on above: Order Comment: CC TO Performed By: #### L 500.4100, L500.4050, L100.0100, L501.9985, L501.9520, L506.1001 #### [facility] [address] [place], [address] Eosinophils/100 WBC (Bld) 1.6 % Normal 0-5 [facility] Comment on above: Order Comment: CC TO Performed By: #### L 500.4100, L500.4050, L100.0100, L501.9985, L501.9520, L506.1001 #### [facility] [address] [place], [address] Erythrocyte distribution width (RBC) [Ratio] 13.5 % Normal 11.6-14.6 [facility] Comment on above: Order Comment: CC TO Performed By: #### L 500.4100, L500.4050, L100.0100, L501.9985, L501.9520, L506.1001 #### [facility] [address] [place], [address] Hematocrit (Bld) [Volume fraction] 42.2 % Normal 37-47 [facility] Comment on above: Order Comment: CC TO Performed By: #### L 500.4100, L500.4050, L100.0100, L501.9985, L501.9520, L506.1001 #### [facility] [address] [place], [address] Hemoglobin (Bld) [Mass/Vol] 14.4 g/dL Normal 12.0-15.0 [facility] Comment on above: Order Comment: CC TO Performed By: #### L 500.4100, L500.4050, L100.0100, L501.9985, L501.9520, L506.1001 #### [facility] [address] [place], [address] IG% 0.100 Normal 0.0-0.9 [facility] Comment on above: Order Comment: CC TO Result Comment: IG% - Immature Granulocytes (promyelocytes, myelocytes and metamyelocytes) > 1% indicates that a LEFT SHIFT is Present. Performed By: #### L 500.4100, L500.4050, L100.0100, L501.9985, L501.9520, L506.1001 #### [facility] [address] [place], [address] Lymphocytes/100 WBC (Bld) 22.6 % Normal 19-41 [facility] Comment on above: Order Comment: CC TO Performed By: #### L 500.4100, L500.4050, L100.0100, L501.9985, L501.9520, L506.1001 #### [facility] [address] [place], [address] MCH (RBC) [Entitic mass] 29.6 pg Normal 27.0-32.0 [facility] Comment on above: Order Comment: CC TO Performed By: #### L 500.4100, L500.4050, L100.0100, L501.9985, L501.9520, L506.1001 #### [facility] [address] [place], [address] MCHC (RBC) [Mass/Vol] 34.1 g/dL Normal 32-36 [facility] Comment on above: Order Comment: CC TO Performed By: #### L 500.4100, L500.4050, L100.0100, L501.9985, L501.9520, L506.1001 #### [facility] [address] [place], [address] MCV (RBC) [Entitic vol] 86.7 fL Normal 81-99 [facility] Comment on above: Order Comment: CC TO Performed By: #### L 500.4100, L500.4050, L100.0100, L501.9985, L501.9520, L506.1001 #### [facility] [address] [place], [address] Monocytes/100 WBC (Bld) 8.2 % Normal 0-10 [facility] Comment on above: Order Comment: CC TO Performed By: #### L 500.4100, L500.4050, L100.0100, L501.9985, L501.9520, L506.1001 #### [facility] [address] [place], [address] Neutrophils/100 WBC (Bld) 67.0 % Normal 47-70 [facility] Comment on above: Order Comment: CC TO Performed By: #### L 500.4100, L500.4050, L100.0100, L501.9985, L501.9520, L506.1001 #### [facility] [address] [place], [address] Nucleated RBC (Bld) [#/Vol] 0 10*3/uL Normal 0-5 [facility] Comment on above: Order Comment: CC TO Performed By: #### L 500.4100, L500.4050, L100.0100, L501.9985, L501.9520, L506.1001 #### [facility] [address] [place], [address] Platelet mean volume (Bld) [Entitic vol] 9.7 fL Normal 6.2-12.0 [facility] Comment on above: Order Comment: CC TO Performed By: #### L 500.4100, L500.4050, L100.0100, L501.9985, L501.9520, L506.1001 #### [facility] [address] [place], [address] Platelets (Bld) [#/Vol] 238 10*3/uL Normal 150-450 [facility] Comment on above: Order Comment: CC TO Performed By: #### L 500.4100, L500.4050, L100.0100, L501.9985, L501.9520, L506.1001 #### [facility] [address] [place], [address] RBC (Bld) [#/Vol] 4.87 10*6/uL Normal 4.2-5.4 [facility] Comment on above: Order Comment: CC TO Performed By: #### L 500.4100, L500.4050, L100.0100, L501.9985, L501.9520, L506.1001 #### [facility] [address] [place], [address] RDW SD 43.1 fl Normal 35.1-43.9 [facility] Comment on above: Order Comment: CC TO Performed By: #### L 500.4100, L500.4050, L100.0100, L501.9985, L501.9520, L506.1001 #### [facility] [address] [place], [address] WBC (Bld) [#/Vol] 7.5 10*3/uL Normal 4.4-11.0 [facility] Comment on above: Order Comment: CC TO Performed By: #### L 500.4100, L500.4050, L100.0100, L501.9959, L501.9520, L506.1001 #### [facility] [address] [place], [address] Cardiology Visit Reporton Cardiology Visit Report [facility] [address] [place] [address] OFFICE VISIT Date of Service: 06/15/25 MR#: [id number] Acct: [id number] Name: AMARA MENDEZ Rep #: [id number] : 1940 Provider: Dr. Jaydon Caceres MD Age/Sex: 84/F Location: [facility] Status: Signed HPI HPI History of Present Illness Details: This is a pleasant 84-year-old lady that presents to the office today for a cardiovascular visit. She has a history of hypertension, hyperlipidemia, coronary artery disease, and congenital heart disease. In 196 she had a ligation of a PDA patent ductus arteriosus. 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 She underwent placement of a drug-eluting stent. She underwent a stress echocardiogram in 2017 in December and she did well without any problems. She also had carotid studies in 2015 with no significant stenosis noted. 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 Her stress test from 02/2021 demonstrated a normal exercise myocardial perfusion stress test at a moderate workload. She denies chest, arm, jaw, or neck discomfort. She denies palpitations. She denies bilateral lower extremity edema. She denies claudication. She denies shortness of breath with activity, shortness of breath at rest, orthopnea, or PND. She denies chronic cough. She denies significant, sudden weight gain. She denies lightheadedness, dizziness, near-syncope, or syncope. She denies blood in urine, blood in stool, or epistaxis. He denies fever with chills. She denies myalgia. She denies fatigue. Her exercise level has remained stable via walking on her treadmill daily. Intake Vital Signs 04/28/24 10:56 11/29/24 10:26 06/15/25 12:58 Height 5 ft 4 in 5 ft 4 in 5 ft 4 in Weight: 181 lb BMI 31.0 BP 134/77 H Blood Pressure Location Lt brachial Position Sitting Respiration 16 Pulse 91 Pulse Source Monitor Intake Visit Reasons: 1 Y FU Certified Flex Endoscope Reprocessor Required: No Accompanied by: Significant Other Is patient in pain?: No Allergies Seasonal Allergies: Uncoded Allergy (Mild, Verified 06/15/25 13:04) Itching clopidogrel (From Plavix) Allergy (Verified 06/15/25 13:04) Hives Medications ???Medication ???Instructions ???Recorded ???Confirmed ???Type aspirin 81 mg chewable tablet 81 mg PO DAILY 09/21/19 06/15/25 H istory multivitamin-minerals -folic acid 1 ea PO DAILY 09/28/19 06/15/25 Hi story 400 mcg-vitamin K 80 mcg capsule cholecalciferol (vitamin D3) 125 125 mcg PO DAILY 03/15/20 06/15/25 History mcg (5,000 unit) capsule turmeric root extract 500 mg 500 mg PO DAILY 03/15/20 06/15/25 History capsule omega-3 fatty acids 1,000 mg 1,000 mg PO TID 02/12/21 06/15/25 History capsule niacin 50 mg tablet 50 mg PO DAILY 02/13/22 06/15/25 H istory calcium carbonate 600 mg PO BID 04/28/24 06/15/25 Hi story protein 1 ea PO DAILY 04/28/24 06/15/25 Hi story fluticasone propionate 50 2 spray intranasal DAILY PRN 12/2106/15/25 Rx mcg/actuation nasal allergy symptoms #48 grams spray,suspension hydrochlorothiazide 12.5 mg tablet 12.5 mg PO DAILY #90 tabs 06/15/25 Rx Have you fallen in the past year?: No PFSH Medical History Osteopenia Atherosclerosis of coronary artery of [place] heart without angina pectoris Hyperlipidemia Essential hypertension Abdominal pain History of CVA (cerebrovascular accident) (03/2016) Biliary dyskinesia Dislocation of left ankle joint, subsequent encounter Fracture of ankle, trimalleolar, left, closed Surgical History History of cataract surgery History of cholecystectomy History of repair of patent ductus arteriosus (1961) History of open reduction and internal fixation (ORIF) procedure (10/04/19) History of bilateral breast biopsy History of coronary artery stent placement (04/03/16) Family History Sister Breast cancer Heart disease Daughter Breast cancer Son Diabetes Mother Heart disease Hypertension High cholesterol Diabetes Parkinson's disease Depression Father Heart disease Hypertension Social History household members: spouse current occupational status: retired current occupation: Worked for [employer] and in [employer] estate Smoking Status: Never smoker Electronic Cigarette Use: not used alcohol intake: current alcohol intake frequency: holidays/special occasions only (more content not included)... Normal [facility] Comprehensive Metabolic Prof gaon 06-15-2025 Albumin [Mass/Vol] 4.0 g/dL Normal 3.4-4.8 [facility] Comment on above: Order Comment: CC TO Performed By: #### L 500.4100, L500.4050, L100.0100, L501.9985, L501.9520, L506.1001 #### [facility] [address] [facility] [place], [address] Albumin/Globulin [Mass ratio] 1.4 {ratio} Normal 0.9-2.4 [facility] Comment on above: Order Comment: CC TO Performed By: #### L 500.4100, L500.4050, L100.0100, L501.9985, L501.9520, L506.1001 #### [facility] [address] [place], [address] ALK PHOS 92 U/L Normal 35-104 [facility] Comment on above: Order Comment: CC TO Performed By: #### L 500.4100, L500.4050, L100.0100, L501.9985, L501.9520, L506.1001 #### [facility] [address] [place], [address] ALT [Catalytic activity/Vol] 14 U/L Normal <=34 [facility] Comment on above: Order Comment: CC TO Performed By: #### L 500.4100, L500.4050, L100.0100, L501.9985, L501.9520, L506.1001 #### [facility] [address] [place], [address] AST [Catalytic activity/Vol] 18 U/L Normal <=31 [facility] Comment on above: Order Comment: CC TO Performed By: #### L 500.4100, L500.4050, L100.0100, L501.9985, L501.9520, L506.1001 #### [facility] [address] [place], [address] Bilirubin [Mass/Vol] 0.87 mg/dL Normal 0.00-1.30 [facility] Comment on above: Order Comment: CC TO Performed By: #### L 500.4100, L500.4050, L100.0100, L501.9985, L501.9520, L506.1001 #### [facility] [address] [place], [address] BUN/CRE 18.7 RATIO Normal 10-20 [facility] Comment on above: Order Comment: CC TO Performed By: #### L 500.4100, L500.4050, L100.0100, L501.9985, L501.9520, L506.1001 #### [facility] [address] [place], [address] Calcium [Mass/Vol] 9.5 mg/dL Normal 7.6-11.0 [facility] Comment on above: Order Comment: CC TO Performed By: #### L 500.4100, L500.4050, L100.0100, L501.9985, L501.9520, L506.1001 #### [facility] [address] [place], [address] Chloride [Moles/Vol] 102 mmol/L Normal 98-108 [facility] Comment on above: Order Comment: CC TO Performed By: #### L 500.4100, L500.4050, L100.0100, L501.9985, L501.9520, L506.1001 #### [facility] [address] [place], [address] CO2 [Moles/Vol] 27.4 mmol/L Normal 21.0-32.0 [facility] Comment on above: Order Comment: CC TO Performed By: #### L 500.4100, L500.4050, L100.0100, L501.9985, L501.9520, L506.1001 #### [facility] [address] [place], [address] Creatinine [Mass/Vol] 0.84 mg/dL Normal 0.70-1.20 [facility] Comment on above: Order Comment: CC TO Performed By: #### L 500.4100, L500.4050, L100.0100, L501.9985, L501.9520, L506.1001 #### [facility] [address] [place], [address] GAP 9 Normal 5-15 [facility] Comment on above: Order Comment: CC TO Performed By: #### L 500.4100, L500.4050, L100.0100, L501.9985, L501.9520, L506.1001 #### [facility] [address] [place], [address] GFR/1.73 sq M.predicted among non-blacks MDRD (S/P/Bld) [Vol rate/Area] 69 mL/min/{1.73_m2} Normal >60 [facility] Comment on above: Order Comment: CC TO Result Comment: mL/m in/1.73m2 CKD-EPI Creatinine Equation (2020) Performed By: #### L 500.4100, L500.4050, L100.0100, L501.9985, L501.9520, L506.1001 #### [facility] [address] [place], [address] Globulin (S) [Mass/Vol] 2.9 g/dL Normal 2.2-4.2 [facility] Comment on above: Order Comment: CC TO Performed By: #### L 500.4100, L500.4050, L100.0100, L501.9985, L501.9520, L506.1001 #### [facility] [address] [place], [address] Glucose [Mass/Vol] 112 mg/dL High 70-99 [facility] Comment on above: Order Comment: CC TO Performed By: #### L 500.4100, L500.4050, L100.0100, L501.9985, L501.9520, L506.1001 #### [facility] [address] [place], [address] Potassium [Moles/Vol] 3.8 mmol/L Normal 3.3-5.1 [facility] Comment on above: Order Comment: CC TO Performed By: #### L 500.4100, L500.4050, L100.0100, L501.9985, L501.9520, L506.1001 #### [facility] [address] [place], [address] Sodium [Moles/Vol] 138 mmol/L Normal 133-145 [facility] Comment on above: Order Comment: CC TO Performed By: #### L 500.4100, L500.4050, L100.0100, L501.9985, L501.9520, L506.1001 #### [facility] [address] [place], [address] T PROT 6.9 g/dL Normal 5.9-8.4 [facility] Comment on above: Order Comment: CC TO Performed By: #### L 500.4100, L500.4050, L100.0100, L501.9985, L501.9520, L506.1001 #### [facility] [address] [place], [address] Urea nitrogen [Mass/Vol] 16 mg/dL Normal 4-19 [facility] Comment on above: Order Comment: CC TO Performed By: #### L 500.4100, L500.4050, L100.0100, L501.9985, L501.9520, L506.1001 #### [facility] [address] [place], [address] Hemoglobin A1con 06-15-2025 HbA1c (Bld) [Mass fraction] 5.4 % Normal <=5.6 [facility] Comment on above: Order Comment: CC TO Result Comment: Norm al < 5.7 % Prediabetic 5.7 - 6.4 % Diabetic >or= 6.5 % Please note range changes. Performed By: #### L 500.4100, L500.4050, L100.0100, L501.9985, L501.9520, L506.1001 #### [facility] [address] [place], [address] Lipid Profileon 06-15-2025 CHOL:HDL 2.71 Normal [facility] Comment on above: Order Comment: CC TO Performed By: #### L 500.4100, L500.4050, L100.0100, L501.9985, L501.9520, L506.1001 #### [facility] [address] [place], [address] Cholesterol [Mass/Vol] 196 mg/dL Normal <=200 [facility] Comment on above: Order Comment: CC TO Result Comment: Chol esterol level, Desirable <200 mg/dL Borderline high cholesterol 200-239 mg/dL High cholesterol >=240 mg/dL Recommendations of the NCEP Adult Treatment Panel for the following risk-cutoff thresholds for the [place] population. Performed By: #### L 500.4100, L500.4050, L100.0100, L501.9985, L501.9520, L506.1001 #### [facility] [address] [place], [address] Cholesterol in HDL [Mass/Vol] 72 mg/dL Normal [facility] Comment on above: Order Comment: CC TO Result Comment: Rose onal Cholesterol Education Program (NCEP) guidelines: <40 mg/dL: Low HDL-cholesterol (major risk factor for CHD) >= 60 mg/dL: High HDL-cholesterol (negative risk factor for CHD) HDL-cholesterol is affected by a number of factors, e.g. smoking, exercise, hormones, sex and age. Performed By: #### L 500.4100, L500.4050, L100.0100, L501.9985, L501.9520, L506.1001 #### [facility] [address] [place], [address] Cholesterol in LDL [Mass/Vol] 106 mg/dL Normal [facility] Comment on above: Order Comment: CC TO Result Comment: Bord fqheld=410-486 mg/dL Higher Toqp=765 mg/dL or greater Escoto Equation 2020 for LDL-C Performed By: #### L 500.4100, L500.4050, L100.0100, L501.9985, L501.9520, L506.1001 #### [facility] [address] [place], [address] Cholesterol in VLDL [Mass/Vol] 20 mg/dL Normal 5-40 [facility] Comment on above: Order Comment: CC TO Performed By: #### L 500.4100, L500.4050, L100.0100, L501.9985, L501.9520, L506.1001 #### [facility] [address] [place], [address] Triglyceride [Mass/Vol] 100 mg/dL Normal [facility] Comment on above: Order Comment: CC TO Result Comment: The drugs N-Acetylcysteine and Metamizole may falsely depress this assay. Normal range: <150 mg/dL Borderline High: 150-199 mg/dL High: 200-499 mg/dL Very High: >500 mg/dL Performed By: #### L 500.4100, L500.4050, L100.0100, L501.9985, L501.9520, L506.1001 #### [facility] [address] [place], [address] Thyroid Stim Hormone (TSH)on 06-15-2025 TSH 1.040 uIU/mL Normal 0.300-4.200 [facility] Comment on above: Order Comment: CC TO Performed By: #### L 500.4100, L500.4050, L100.0100, L501.9985, L501.9520, L506.1001 #### [facility] [address] [place], [address] Vitamin D,25 Hydroxyon 06-15 Vitamin D 25-OH 38.0 ng/mL Normal 30-100 [facility] Comment on above: Order Comment: CC TO Result Comment: Leann min D Status Deficiency: <20 ng/mL (50nmol/L) Insufficiency: 20-30 ng/mL (50-75 nmol/L) Sufficiency: 30-100 ng/mL (75-250 nmol/L) Toxicity: >100 ng/mL (>250 nmol/L) Performed By: #### L 500.4100, L500.4050, L100.0100, L501.9985, L501.9520, L506.1001 #### [facility] [address] [place], [address] Internal Medicine Office Vis iton 11-28-2024 Internal Medicine Office Visit [facility] [address] [place] [address] [place] [address] OFFICE VISIT Date of Service: 11/29/24 MR#: [id number] Acct: [id number] Name: AMARA MENDEZ Rep #: [id number] : 1940 Provider: Dr. Jenna peñaloza MD Age/Sex: 84/F Location: [facility] Status: Signed Intake Vital Signs 11/02/24 10:37 11/29/24 10:26 Height 5 ft 4 in 5 ft 4 in Weight: 185 lb BMI 31.7 BP 130/68 H Blood Pressure Location Rt brachial Position Sitting Respiration 18 Pulse 74 Pulse Source Monitor Temp 97.0 F L Temp Source Temporal Pulse Oximetry (%) 98 Oxygen Delivery Method room air Intake Visit Reasons: YEARLY Chief Complaint: YEARLY Is patient in pain?: No Allergies Seasonal Allergies: Uncoded Allergy (Mild, Verified 11/29/24 10:24) Itching clopidogrel (From Plavix) Allergy (Verified 11/29/24 10:24) Hives Medications ???Medication ???Instructions ???Recorded ???Confirmed ???Type aspirin 81 mg chewable tablet 81 mg PO DAILY 09/21/19 11/29/24 H istory multivitamin-minerals -folic acid 1 ea PO DAILY 09/28/19 11/29/24 Hi story 400 mcg-vitamin K 80 mcg capsule cholecalciferol (vitamin D3) 125 125 mcg PO DAILY 03/15/20 11/29/24 History mcg (5,000 unit) capsule turmeric root extract 500 mg 500 mg PO DAILY 03/15/20 11/29/24 History capsule omega-3 fatty acids 1,000 mg 1,000 mg PO TID 02/12/21 11/29/24 History capsule vitamin K2 100 mcg capsule 100 mcg PO DAILY 02/12/21 11/29/24 History niacin 50 mg tablet 50 mg PO DAILY 02/13/22 11/29/24 H istory calcium carbonate 600 mg PO BID 04/28/24 11/29/24 Hi story protein 1 ea PO DAILY 04/28/24 11/29/24 Hi story fluticasone propionate 50 2 spray intranasal DAILY PRN 06/2611/29/24 Rx mcg/actuation nasal allergy symptoms #48 grams spray,suspension hydrochlorothiazide 12.5 mg tablet 12.5 mg PO DAILY #90 tabs 11/29/24 Rx Have you fallen in the past year?: No PFSH Medical History Osteopenia Atherosclerosis of coronary artery of [place] heart without angina pectoris Hyperlipidemia Essential hypertension Abdominal pain History of CVA (cerebrovascular accident) (03/2016) Biliary dyskinesia Dislocation of left ankle joint, subsequent encounter Fracture of ankle, trimalleolar, left, closed Surgical History History of cataract surgery History of cholecystectomy History of repair of patent ductus arteriosus (1961) History of open reduction and internal fixation (ORIF) procedure (10/04/19) History of bilateral breast biopsy History of coronary artery stent placement (04/03/16) Family History Sister Breast cancer Heart disease Daughter Breast cancer Son Diabetes Mother Heart disease Hypertension High cholesterol Diabetes Parkinson's disease Depression Father Heart disease Hypertension Social History (Updated 11/29/24 @ 10:[address] 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 1. Little interest or pleasure in doing things: not at all 2. Feeling down, depressed, or hopeless: not at all 3. Trouble falling or staying asleep, or sleeping too much: more than half the days 4. Feeling tired or having little energy: more than half the days 5. Poor appetite or overeating: not at all 6. Feeling bad about yourself - or that you are a failure or have let yourself and your family down: not at all 7. Trouble concentrating on things, such as reading the newspaper or watching television: several days 8. Moving or speaking so slowly that other people could have noticed? - Or the opposite - being so fidgety or restless that you have been moving around a lot more than usual: not at all 9. Thoughts that you would be better off or of hurting yourself in some way: not at all Total score: 5 If you checked off any problems, how difficult have these problems made it for you to do your work, take care of things at home, or get along with other people?: not difficult at all Source: Developed by Drs. Oscar Amos, Savi Hernandez, Maulik Patel and colleagues, with an educational luis from [employer]. HPI HPI Chief Complaint: YEARLY Details: (more content not included)... Normal [facility] Visit Reporton 0 11-02-2024 Urgent Care Visit Report [facility] [address], [address] [place] [address] OFFICE VISIT Date of Service: 11/02/24 MR#: [id number] Acct: [id number] Name: AMARA MENDEZ Rep #: [id number] : 1940 Provider: NADEEM Mohan Age/Sex: 83/F Location: [facility] Status: Signed Intake Vital Signs 04/28/24 10:56 11/02/24 10:37 Height 5 ft 4 in 5 ft 4 in Weight: 180 lb 184 lb 6 oz BMI 30.9 31.6 BP 134/85 H 160/76 H Blood Pressure Location Lt brachial Lt brachial Position Sitting Sitting Respiration 16 16 Pulse 78 78 Pulse Source Monitor NIBP Temp 97.9 F Temp Source Oral Pulse Oximetry (%) 96 97 Oxygen Delivery Method room air room air Intake Visit Reasons: ST/SINUS DRAINAGE Chief Complaint: ST, drainage Certified Flex Endoscope Reprocessor Required: No Is patient in pain?: No Allergies Seasonal Allergies: Uncoded Allergy (Mild, Verified 11/02/24 10:37) Itching clopidogrel (From Plavix) Allergy (Verified 11/02/24 10:37) Hives Is last menstrual period known: No Post menopausal: Yes Patient : No Have you fallen in the past year?: No Nurse's Note: ST, drainage for over 10 days. denies BAEHNA, BA, fever, cough. states drainage is so thick it occasionally feels like she will choke on it. [facility] Medical History Osteopenia Atherosclerosis of coronary artery of [place] heart without angina pectoris Hyperlipidemia Essential hypertension Abdominal pain History of CVA (cerebrovascular accident) (03/2016) Biliary dyskinesia Dislocation of left ankle joint, subsequent encounter Fracture of ankle, trimalleolar, left, closed Surgical History History of cataract surgery History of cholecystectomy History of repair of patent ductus arteriosus (1961) History of open reduction and internal fixation (ORIF) procedure (10/04/19) History of bilateral breast biopsy History of coronary artery stent placement (04/03/16) Family History Sister Breast cancer Heart disease Daughter Breast cancer Son Diabetes Mother Heart disease Hypertension High cholesterol Diabetes Parkinson's disease Depression Father Heart disease Hypertension Social History (Reviewed 04/28/24 @ 11:31 by Manuel Morse SLIDE FORMING MACHINE OPERATOR, SLIDE FORMING MACHINE OPERATOR-C) household members: spouse current occupational status: retired 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 No complaints of fever, chills, myalgias, fatigue, runny nose, cough, or nausea/vomiting/diarr hea. No complaints of chest pain/shortness of breath/dyspnea on exertion. No close contacts with similar complaints. Non- smoker. Declining POC screening. No other associated symptoms and no other alleviating/aggravati ng factors. ROS Const Constitutional: No other (as above) Exam Const General: cooperative, healthy appearing and no acute distress Nutritional Appearance: average body habitus Orientation: alert, awake and oriented x3 HENMT Head: normal to inspection Ears: hearing grossly normal bilaterally, external ears normal, TM's normal bilaterally and EAC's normal Nose: external nose normal, nares normal, septum normal and no nasal discharge Face and sinus: normal facial exam, sinuses nontender (Though bilateral maxillary fullness to palpation) and face symmetric Mouth: oral mucosae normal, lip normal, tongue normal and oropharynx normal Throat: posterior oropharynx normal, tonsils normal, uvula midline and postnasal drainage (Purulent) Eyes General: appearance normal, both eyes and all related structures Neck Neck: normal visual inspection, full ROM, no meningeal signs, supple and lymphadenopathy (Bilateral anterior cervical lymph node swelling/tender to palpation) Neck mass: No Thyroid: thyroid normal Chest Chest palpation inspection: normal inspection of the chest Resp Effort Inspection: normal respiratory effort and able to speak in complete sentences Auscultation: Bilateral: Clear to Auscultation Cardio Palpation: normal PMI Rate: regular rate Rhythm: regular rhythm Heart Sounds: S1 normal, S2 normal, no gallops, no murmurs and no rubs P (more content not included)... Normal [facility] Absolute lymphocyte countOrd ered By: Jenna Staples on 09-30-2023 Lymphocytes Auto (Unsp spec) [#/Vol] 1.69 10*3/uL 0.83-4.51 [facility] Automated lymphocyte count a s percentage of total leukocytesOrdered By: Jenna Staples on 09-30-2023 Lymphocytes/100 WBC Auto (Unsp spec) 31.4 % 19-41 [facility] Basophil percentageOrdered B y: Jenna Staples on 09-30-2023 Basophils/100 WBC (Bld) 0.9 % 0-1 [facility] Chloride [Moles/Vol] 105 mmol/L 98-107 [facility] Eosinophils/100 WBC (Bld) 1.5 % 0-5 [facility] Glucose [Mass/Vol] 120 mg/dL 74-106 [facility] Comment on above: Fasting Glucose resu lt from 100 to 125 mg/dL suggests IMPAIRED HOMEOSTASIS per A.D.A. criteria. Hemoglobin (Bld) [Mass/Vol] 13.9 g/dL 12.0-15.0 [facility] Monocytes/100 WBC (Bld) 8.4 % 0-10 [facility] Neutrophils (Bld) [#/Vol] 3.1 10*3/uL 2.0-7.7 [facility] Neutrophils/100 WBC (Bld) 57.4 % 47-70 [facility] Potassium [Moles/Vol] 4.0 mmol/L 3.5-5.1 [facility] Sodium [Moles/Vol] 138 mmol/L 136-145 [facility] WBC (Bld) [#/Vol] 5.4 10*3/uL 4.4-11.0 [facility] Determination of erythrocyte mean corpuscular volume (MCV)Ordered By: Jenna Staples on 09-30-2023 MCV (RBC) [Entitic vol] 89.2 fL 81-99 [facility] Erythrocyte distribution wid th ratioOrdered By: Jenna Staples on 09-30-2023 Erythrocyte distribution width (RBC) [Ratio] 12.9 % 11.6-14.6 [facility] Erythrocyte distribution wid th standard deviationOrdered By: Jenna Staples on 09-30-2023 Erythrocyte distribution width (RBC) [Entitic vol] 42.3 fL 35.1-43.9 [facility] Hematocrit Auto (Bld) [Volum e fraction]Ordered By: Jenna Staples on 09-30-2023 Hematocrit (Bld) [Volume fraction] 42.8 % 37-47 [facility] Immature granulocytes/100 WB C Auto (Bld)Ordered By: Jenna Staples on 09-30-2023 Immature granulocytes/100 WBC (Bld) 0.400 % 0.0-0.9 [facility] Comment on above: IG% - Immature Granu locytes (promyelocytes, myelocytes and metamyelocytes) > 1% indicates that a LEFT SHIFT is Present. Laboratory - Chemistry and C hemistry - challengeOrdered By: Jenna Staples on 09-30-2023 CO2 [Moles/Vol] 29.0 mmol/L 21.0-32.0 [facility] Urea nitrogen/Creatinine [Mass ratio] 18.0 mg/mg 10-20 [facility] - Hematology and Cell countsOrdered By: Jenna Staples on 09-30-2023 MCH (RBC) [Entitic mass] 29.0 pg 27.0-32.0 [facility] MCHC (RBC) [Mass/Vol] 32.5 g/dL 32-36 [facility] Nucleated RBC/100 WBC (Bld) [Ratio] 0 % 0-5 [facility] Platelet mean volume (Bld) [Entitic vol] 10.2 fL 6.2-12.0 [facility] Platelets (Bld) [#/Vol] 237 10*3/uL 150-450 [facility] No Panel InformationOrdered By: Jenna Staples on 09-30-2023 Estimated GFR (MDRD) Amer 73 mL/min >60 [facility] Comment on above: GFR Calc Estimated GFR (MDRD) Non-Af Amer 60 mL/min >60 [facility] Comment on above: Non- GFR Calc Vitamin D 25-Hydroxy 70.5 ng/mL [facility] Comment on above: Vitamin D 25(OH) Sta tus Range Deficiency <20 ng/mL (50nmol/L) Insufficiency 20 - 30 ng/mL (50 - 75 nmol/L) Sufficiency 30 - 100 ng/mL (75 - 250 nmol/L) Toxicity >100 ng/mL (>250 nmol/L) RBC Auto (Bld) [#/Vol]Ordere d By: Jenna Staples on 09-30-2023 RBC (Bld) [#/Vol] 4.80 10*6/uL 4.2-5.4 [facility] Serum or plasma calcium jadiel urement (mass/volume)Ordered By: Jenna Staples on 09-30-2023 Calcium [Mass/Vol] 10.2 mg/dL 8.5-10.1 [facility] Serum or plasma creatinine m easurement (mass/volume)Ordered By: Jenna Staples on 09-30-2023 Creatinine [Mass/Vol] 0.94 mg/dL 0.55-1.02 [facility] Comment on above: The validity of the calculated GFR & GFRAA in patients over 70 years has not been determined. Clinical correlation is essential. Serum or plasma urea nitroge n measurement (mass/volume)Ordered By: Jenna Staples on 09-30-2023 Urea nitrogen [Mass/Vol] 17 mg/dL 7-18 [facility] Thin prep Papanicolaou smear with manual screeningOrdered By: Jenna Staples on 09-30-2023 Thin prep Papanicolaou smear with manual screening 4 5-15 [facility] Absolute lymphocyte counton 04-18-2022 Lymphocytes Auto (Unsp spec) [#/Vol] 1.88 10*3/uL 0.83-4.51 [facility] Work Phone: Basophil percentageon 2021 Basophils/100 WBC (Bld) 0.8 % 0-1 [facility] Work Phone: Bilirubin [Mass/Vol] 1.00 mg/dL 0.20-1.00 [facility] Work Phone: Comment on above: For patients on eltr ombopag therapy, use of Dimension [place] TBIL is not recommended. Chloride [Moles/Vol] 105 mmol/L 98-107 [facility] Work Phone: Cholesterol [Mass/Vol] 217 mg/dL <200 [facility] Work Phone: Comment on above: <200 mg/dL Desirable 200-240 mg/dL Borderline >240 mg/dL High Risk Eosinophils/100 WBC (Bld) 2.0 % 0-5 [facility] Work Phone: Glucose [Mass/Vol] 91 mg/dL 74-106 [facility] Work Phone: Neutrophils (Bld) [#/Vol] 2.5 10*3/uL 2.0-7.7 [facility] Work Phone: Neutrophils/100 WBC (Bld) 49.2 % 47-70 [facility] Work Phone: Potassium [Moles/Vol] 3.8 mmol/L 3.5-5.1 [facility] Work Phone: Protein [Mass/Vol] 7.0 g/dL 6.4-8.2 [facility] Work Phone: Sodium [Moles/Vol] 141 mmol/L 136-145 [facility] Work Phone: Triglyceride [Mass/Vol] 91 mg/dL <199 [facility] Work Phone: Comment on above: The drugs N-Acetylcy steine and Metamizole may falsely depress this assay.Serum Triglycerides Reference Interval Normal <150 mg/dL Borderline high 150 - 199 mg/dL High 200 - 499 mg/dL Very High > or = 500 mg/dL WBC (Bld) [#/Vol] 5.0 10*3/uL 4.4-11.0 [facility] Work Phone: Blood erythrocytes count (nu mber/volume)on 04-18-2022 RBC (Bld) [#/Vol] 4.82 10*6/uL 4.2-5.4 [facility] Work Phone: Blood hemoglobin measurement (mass/volume)on 04-18-2022 Hemoglobin (Bld) [Mass/Vol] 14.1 g/dL 12.0-15.0 [facility] Work Phone: Blood lymphocytes/100 leukoc yteson 04-18-2022 Lymphocytes/100 WBC (Bld) 37.8 % 19-41 [facility] Work Phone: Blood monocytes/100 leukocyt eson 04-18-2022 Monocytes/100 WBC (Bld) 10.0 % 0-10 [facility] Work Phone: Blood platelet mean volumeon 04-18-2022 Platelet mean volume (Bld) [Entitic vol] 9.8 fL 6.2-12.0 [facility] Work Phone: Determination of erythrocyte mean corpuscular volume (MCV)on 04-18-2022 MCV (RBC) [Entitic vol] 88.2 fL 81-99 [facility] Work Phone: Direct bilirubinon 2 Bilirubin.direct [Mass/Vol] 0.22 mg/dL 0.00-0.30 [facility] Work Phone: Hematocrit Auto (Bld) [Volum e fraction]on 04-18-2022 Hematocrit (Bld) [Volume fraction] 42.5 % 37-47 [facility] Work Phone: Laboratory - Chemistry and C hemistry - challengeon 04-18-2022 ALP [Catalytic activity/Vol] 69 U/L 45-117 [facility] Work Phone: ALT [Catalytic activity/Vol] 20 U/L 13-56 [facility] Work Phone: CO2 [Moles/Vol] 30.0 mmol/L 21.0-32.0 [facility] Work Phone: Globulin (S) [Mass/Vol] 3.5 g/dL 2.2-4.2 [facility] Work Phone: Urea nitrogen/Creatinine [Mass ratio] 16.6 mg/mg 10-20 [facility] Work Phone: Laboratory - Hematology and Cell countson 04-18-2022 Erythrocyte distribution width (RBC) [Entitic vol] 43.2 fL 35.1-43.9 [facility] Work Phone: Erythrocyte distribution width (RBC) [Ratio] 13.3 % 11.6-14.6 [facility] Work Phone: Immature granulocytes/100 WBC (Bld) 0.200 % 0.0-0.9 [facility] Work Phone: Comment on above: IG% - Immature Granu locytes (promyelocytes, myelocytes and metamyelocytes) > 1% indicates that a LEFT SHIFT is Present. MCH (RBC) [Entitic mass] 29.3 pg 27.0-32.0 [facility] Work Phone: Nucleated RBC/100 WBC (Bld) [Ratio] 0 % 0-5 [facility] Work Phone: MCHC Auto (RBC) [Mass/Vol]on 04-18-2022 MCHC (RBC) [Mass/Vol] 33.2 g/dL 32-36 [facility] Work Phone: No Panel Informationon 04-18 Estimated GFR (MDRD) Amer 77 mL/min >60 [facility] Work Phone: Comment on above: GFR Calc Estimated GFR (MDRD) Non-Af Amer 64 mL/min >60 [facility] Work Phone: Comment on above: Non- GFR Calc Vitamin D 25-Hydroxy 69.7 ng/mL [facility] Work Phone: Comment on above: Vitamin D 25(OH) Sta tus Range Deficiency <20 ng/mL (50nmol/L) Insufficiency 20 - 30 ng/mL (50 - 75 nmol/L) Sufficiency 30 - 100 ng/mL (75 - 250 nmol/L) Toxicity >100 ng/mL (>250 nmol/L) Platelets bldon 04-18-2022 Platelets (Bld) [#/Vol] 241 10*3/uL 150-450 [facility] Work Phone: Serum or plasma albumin jadiel urement (mass/volume)on 04-18-2022 Albumin [Mass/Vol] 3.5 g/dL 3.2-5.0 [facility] Work Phone: Serum or plasma calcium jadiel urement (mass/volume)on 04-18-2022 Calcium [Mass/Vol] 9.5 mg/dL 8.5-10.1 [facility] Work Phone: Serum or plasma cholesterol in HDL measurement (mass/volume)on 04-18-2022 Cholesterol in HDL [Mass/Vol] 87 mg/dL >40 [facility] Work Phone: Comment on above: The drugs N-Acetylcy steine and Metamizole may falsely depress this assay. Reference Range HDL <40 mg/dL Low HDL Cholesterol HDL >or= 60 mg/dL High HDL Cholesterol Serum or plasma cholesterol in VLDL measurement (mass/volume)on 04-18-2022 Cholesterol in VLDL [Mass/Vol] 18 mg/dL 5-40 [facility] Work Phone: Serum or plasma creatinine m easurement (mass/volume)on 04-18-2022 Creatinine [Mass/Vol] 0.90 mg/dL 0.55-1.02 [facility] Work Phone: Comment on above: The validity of the calculated GFR & GFRAA in patients over 70 years has not been determined. Clinical correlation is essential. Serum or plasma low density lipoprotein (LDL) cholesterol measurement (mass/volume)on 04-18-2022 Cholesterol in LDL [Mass/Vol] 112 mg/dL 0-130 [facility] Work Phone: Serum or plasma urea nitroge n measurement (mass/volume)on 04-18-2022 Urea nitrogen [Mass/Vol] 15 mg/dL 7-18 [facility] Work Phone: Thin prep Papanicolaou smear with manual screeningon 04-18-2022 Thin prep Papanicolaou smear with manual screening 16 U/L 15-37 [facility] Work Phone: Thin prep Papanicolaou smear with manual screening 6 5-15 [facility] Work Phone: OT Bone Density DEXA Axial S joesph 06-02-2018 OT Bone Density DEXA Axial Skeleton Patient Name: AMARA MENDEZ Bone Density Exam Date/Time 06/02/2018 12:35:31 EDT Exam OT Bone Density DEXA Axial Skeleton Ordering Physician AQUILINO VÁSQUEZ HOLLY S Accession Number [id number] CPT4 Codes 76602 () Reason For Exam screening osteoporosis, menopause Report DXA BONE DENSITOMETRY: CLINICAL INDICATION: Menopause, screening for osteoporosis COMPARISON: May 05, 2013 TECHNIQUE: Quantitative bone mineral densitometry of the hip and lumbar spine was performed with a dual energy x-ray observed absorptiometry device - [facility] QDR 4500 C. Regions of interest were obtained through the left proximal femur and compared to the normal value of the young adult. Regions of interest were also obtained through the lumbar vertebrae with an average value determined and compared with the young adult. The measured bone density minus the bone density of the young normal reference divided by the reference standard deviation is expressed as the T score. Using the same formula adjusting the reference density and standard deviation for age and race determines the Z score. According to World Health Organization criteria: T-score of -1.0 or higher is normal. T-score between -1.0 and -2.5 is low bone density or "osteopenia." T-score of -2.5 or lower is abnormally low, compatible with osteoporosis. T-score of -2.5 or less plus fragility fracture indicates severe osteoporosis." FINDINGS: Hip: Femoral neck Density: 0.613 g/cm2. T-score: -2.1 Z-score: 0.0 Hip: Total hip Density: 0.879 g/cm2. T-score: -0.5 Z-score: 1.4 Comparison from prior examination: Interval change of -1.5 percent. Spine: L2-L4 Density 0.860 g/cm2. T-score: -2.0 Z-score: 0.6 Comparison from prior examination: Interval change of 0.3 percent. IMPRESSION: Bone mineral density indicative of osteopenia. FRACTURE RISK: The estimated 10 year risk for a hip fracture is 13 % and for a major osteoporosis-related fracture is 23 %. (FRAX web version 3.11). RECOMMENDATIONS: General recommendations for prevention of bone loss include: 6646-0409 mg calcium intake per day for adults >50yrs, and no history of renal calculi 800-1000 IU of vitamin D3 per day for adults >50yrs, and no history of renal calculi Weight bearing exercise Discontinue smoking Avoid excessive use of caffeine, soft drinks, and alcoholic beverages. In addition, balance training and fall prevention programs can help reduce the risk of fractures. Pharmacologic treatment recommendations: Initiate pharmacologic treatment in patients with: -Hip or vertebral fracture. -In those with T scores /= 3% or a 10 year major osteoporosis-related fracture probability >/= 20% based on the [place]-adapted WHO fracture risk model (FRAX). Current FDA-approved pharmacologic options for osteoporosis treatment include bisphosphonates (Fosamax), ibandronate (Boniva), risedronate (Actonel), zoledronic acid (Reclast), estrogens and other hormonal therapies (Evista), parathyroid hormone (Forteo), and denosumab (Prolia). Initiation of pharmacologic therapy should happen only after thorough medical evaluation, discussion of risks and benefits, and with regular monitoring of the therapeutic regimen. FOLLOW-UP RECOMMENDATIONS: Patients with osteoporosis or or at high risk for fracture should have follow-up bone density tests. For Medicare patients, routine testing is allowed every 2 years. Patients who have low bone mass (T score -2.0 to -2.49), who are currently on treatment for low bone mass, or having risk factors for accelerated bone loss (glucocorticoids, aromatase inhibitors, etc.), consider repeat DXA in 1-2 years. Patients with osteopenia and no risk factors may consider follow-up every 3-5 years. REFERENCES: National Osteoporosis Foundation. Clinician's Guide to Prevention and Treatment of Osteoporosis. Osteoporosis International. Far[place], 2014. DXA Scan Screening, Reporting (FRAX Score) and Follow-up. [employer] Knowledge Evidence - based Summaries. [facility] [employer] [place] [employer]. 2017 Report Dictated on Final Dictating Physician: MD GOSS BRIAN Signed Date and Time: 06/02/2018 12:54 pm Signed by: MD GOSS BRIAN Transcribed Date and Time: 06/02/2018 12:55 Normal [facility] Vital Signs Date Time Vital Sign Value Performing Clinician Jim santacruz 09-30-2023 13:29-0500 Body height 162.[address] Jenan Staples Work Phone: [facility] 09-30-2023 13:29-0500 Body mass index (BMI) [Ratio] 30.4 kg/m2 Dr. Jenna Staples Work Phone: [facility] 09-30-2023 13:29-0500 Body temperature 97.1 [degF] Dr. Jenna Staples Work Phone: [facility] 09-30-2023 13:29-0500 Body weight 80.[address] Jenna Staples Work Phone: [facility] 09-30-2023 13:29-0500 Diastolic blood pressure 70 mm[Hg] Dr. Jenna Staples Work Phone: [facility] 09-30-2023 13:29-0500 Heart rate 63 /min Dr. Jenna Staples Work Phone: [facility] 09-30-2023 13:29-0500 Respiratory rate 16 /min Dr. Jenna Staples Work Phone: [facility] 09-30-2023 13:29-0500 SaO2% (BldA) [Mass fraction] 99 % Dr. Jenna Staples Work Phone: [facility] 09-30-2023 13:29-0500 Systolic blood pressure 136 mm[Hg] Dr. Jenna Staples Work Phone: [facility] 04-14-2022 10:04-0400 Body height 162.56 cm No Primary Care Physician [facility] Work Phone: 04-14-2022 10:01-0400 Body mass index (BMI) [Ratio] 30 kg/m2 No Primary Care Physician [facility] Work Phone: 04-14-2022 10:01-0400 Body weight 79.37 kg No Primary Care Physician [facility] Work Phone: 04-14-2022 10:01-0400 Diastolic blood pressure 75 mm[Hg] No Primary Care Physician [facility] Work Phone: 04-14-2022 10:01-0400 Heart rate 74 /min No Primary Care Physician [facility] Work Phone: 04-14-2022 10:01-0400 Respiratory rate 16 /min No Primary Care Physician [facility] Work Phone: 04-14-2022 10:01-0400 Systolic blood pressure 131 mm[Hg] No Primary Care Physician [facility] Work Phone: 02-13-2022 14:56-0400 Body mass index (BMI) [Ratio] 30.5 kg/m2 No Primary Care Physician [facility] Work Phone: 02-13-2022 14:56-0400 Body temperature 97.6 [degF] No Primary Care Physician [facility] Work Phone: 02-13-2022 14:56-0400 Body weight 80.73 kg No Primary Care Physician [facility] Work Phone: 02-13-2022 14:56-0400 Diastolic blood pressure 68 mm[Hg] No Primary Care Physician [facility] Work Phone: 02-13-2022 14:56-0400 Heart rate 100 /min No Primary Care Physician [facility] Work Phone: 02-13-2022 14:56-0400 Respiratory rate 16 /min No Primary Care Physician [facility] Work Phone: 02-13-2022 14:56-0400 Systolic blood pressure 124 mm[Hg] No Primary Care Physician [facility] Work Phone: Encounters Encounter Date Encounter Type Care Provider Facility Start: 07-07-2025 ambulatory Jenna Kentland Facility :[facility] Start: 06-15-2025 End: 06-15-2025 ambulatory Alberton Nicki [place] Start: 06-15-2025 End: 06-15-2025 ambulatory Jenna Kentland Facility:[facility] Start: 11-29-2024 End: 11-29-2024 ambulatory Jenna Staples Facility:[facility] Start: 11-02-2024 End: 11-02-2024 ambulatory Weston SILVER Facility:[facility] Start: 09-30-2023 End: 09-30-[address] Jenna Staples Work Phone: [facility] Work Phone: Start: 09-30-2023 End: 09-30-2023 Encounter for general adult medical examination without abnormal findings Dr. Jenna Staples Work Phone: [facility] Start: 09-30-2023 End: 09-30-[address] Jenna Staples Work Phone: [facility] Work Phone: Start: 04-18-2022 End: 04-18-2022 ambulatory No Primary Care Physician [facility] Work Phone: Start: 04-18-2022 End: 04-18-2022 Patient encounter procedure No Primary Care Physician [facility] Start: 04-14-2022 End: 04-14-2022 Patient encounter procedure No Primary Care Physician [facility] Start: 02-13-2022 End: 02-13-2022 Patient encounter procedure No Primary Care Physician [facility] Start: 06-02-2018 Patient encounter UNKNOWN PROVIDER [facility] Procedures Date Procedure Procedure Detail Performing Clinician Start: 04-03-2016 History of placement of stent for coronary artery disease History of coronary artery stent placement No Primary Care Physician Immunizations Immunization Date Immunization Notes Care Provider Fa cility 07-17-2021 Covid (Pfizer) No Primary Ca re Physician [facility] 10-12-2020 Covid (Pfizer) No Primary Ca re Physician [facility] 09-21-2020 Covid (Pfizer) No Primary Ca re Physician [facility] 02-26-2016 pneumococcal polysaccharide vaccine, 23 valent No Primary Care Physician [facility] 11-27-2014 pneumococcal conjuga te vaccine, 7 valent No Primary Care Physician [facility] 05-17-2010 pneumococcal polysaccharide vaccine, 23 valent No Primary Care Physician [facility] Payers Date Payer Category Payer Self-pay [id number] 2024 Unknown [id number] 2006 Medicare 2006 Medicare [id number] 1940 Unknown [id number] 2.16.8 [id number] Unknown Unknown [id number] 2.16.8 [id number] Unknown [id number] 2.16.8 [id number] Unknown [id number] 2.16.8 [id number] Unknown [id number] 2.16.8 [id number] Unknown [id number] 2.16.8 [id number] Social History Date Type Detail Facility Start: 04-14-2022 End: 09-30-2023 Tobacco smoking status NHIS Unknown if ever smoked [facility] Start: 03-19-2020 Non-smoker [facility] Start: 1940 Sex Assigned At Female [facility] Medical Equipment Procedure Code Equipment Code Equipment Origin al Text Equipment Identifier Dates ORIF, ankle 4 HOLE DISTAL FI BULA PLATE FDA Start: 10-04-2019 ORIF, ankle CANNULATED SCREW FDA Start: 10-04-2019 ORIF, ankle T10 CORTEX SCREW FDA Start: 10-04-2019 ORIF, ankle T10 LOCKING SCREW FDA Start: 10-04-2019 ORIF, ankle T10 LOCKING SCREW FDA Start: 10-04-2019 ORIF, ankle 4 HOLE DISTAL FI BULA PLATE FDA Start: 10-04-2019 ORIF, ankle CANNULATED SCREW FDA Start: 10-04-2019 ORIF, ankle T10 CORTEX SCREW FDA Start: 10-04-2019 ORIF, ankle T10 LOCKING SCREW FDA Start: 10-04-2019 ORIF, ankle T10 LOCKING SCREW FDA Start: 10-04-2019 [place] Xience cardiac stent FDA Start: 04-03-2016 EDD KNAPP FDA Start: 03-22-2020 EDD KNAPP FDA Start: 03-22-2020 [employer]art Xience cardiac stent FDA Start: 04-03-2016 EDD KNAPP FDA Start: 03-22-2020 EDD KNAPP FDA Start: 03-22-2020 Evaluation note Note Date & Type Note Facility Evaluation note Diagnosis Onset Date Osteopenia acute Seasonal allergies acute 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 Essential hypertension chron ic Screening declined by patient noneactive Establishing care with new doctor, encounter for noneactive 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 Essential hypertension chron ic History of coronary artery stent placement April 03, 2016 resolved Hyperlipidemia resolved [facility] Work Phone: Evaluation note Note Date & Type Note Facility Evaluation note Diagnosis Onset Date Osteopenia acute Seasonal allergies acute 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 Essential hypertension chron ic Well adult exam noneactive [facility] Work Phone: Summary Purpose Family History No Family History Records Found Relationship Condition Age at Onset Recorded Date/T kayy sister Malignant neoplasm of breast Unknown Cardiac disease Unknown daughter Malignant neoplasm of breast Unknown son Diabetes mellitus Unknown mother Cardiac disease Unknown Hypertension Unknown High blood cholesterol Unknown Diabetes mellitus Unknown Parkinson's disease Unknown Depression Unknown father Cardiac disease Unknown Advance Directives No Advanced Directives Records Found Advance Directive Response Recorded Date/ Time Living Will No March 19, 2020 8:18am Power of Supervisor Correspondence Section No March 19 8:18am Advance Directive Response Recorded Date/ Time Living Will No March 19, 2020 7:18am Power of Supervisor Correspondence Section No March 19 7:18am Chief Complaint and Reason for 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 DATE CREATED AUTHOR AUTHOR'S MONTEZ ATLUH 06/30/2025 [facility] Goals (unrecognized section and content) Goals may be documented in a n alternate sectionGoals may be documented in an alternate section Care Teams (unrecognized sec tion and content) Team Status: Active Member Role Status Dates Dr. Raul Enamorado MD Family Provider Active Dr. Jenna Staples MD Primary Care Provider Active Team Status: Inactive Member Role Status Dates Dr. Jenna Staples MD Primary Care Pro vider, Attending Provider, Referring Provider Active Team Status: Inactive Member Role Status Dates Dr. Jenna Staples MD Primary Care Provider, Attendi ng Provider Active FOR RECORDS PERTAINING TO PATIENTS WHO ARE [...] BE BASED ON THE PRIMARY CLINICAL RECORDS. [facility]. provides no warranty or guarantee of the accuracy or completeness of information in this document.
--- NOTE | 2025-07-07 18:31 | STRESSREP ---
Stress Test Report Exercise myocardial perfusion stress test. 84-year-old lady with a history of coronary artery disease. Stress protocol: Resting EKG demonstrates normal sinus rhythm with a rate of 71 bpm resting blood pressure is 142/84 mmHg. The patient exercised according to the regular Jordan protocol for a total duration of 5 minutes attaining a maximum heart rate of 142 bpm which was 103% of maximum predicted heart rate; the maximum workload was 7 metabolic equivalents. At rest there were no ST or T wave changes noted to suggest ischemia and at peak exercise upsloping ST changes only were noted which did not meet the criteria for ischemia. No clinical angina was noted the test was terminated due to the target heart rate being achieved/fatigue. The peak blood pressure was 184/102 mmHg. Rate-pressure product was 17,600. Myocardial perfusion protocol. 11.5 mCi of technetium 99m sestamibi was injected at rest. The patient exercised according to regular Jordan protocol for total duration of 5 minutes and at peak exercise 33.1 mCi of technetium 99m sestamibi was injected stress images were obtained stress and rest images were reconstructed in comparing the short axis vertical long and horizontal long axis. Gated images were also obtained. Perfusion SPECT analysis: Review of the stress images demonstrate normal uptake of tracer noted in all areas of the myocardium. The resting images similarly demonstrate normal uptake of tracer noted in all areas of the myocardium. No areas of reversibility are noted to suggest ischemia no previous infarct was noted. Gated SPECT analysis: The gated ejection fraction is 80% Conclusion: Normal exercise myocardial perfusion stress test at a moderate workload.
== END | disposition home or self-care (01) ==
LOC: CVS 07:05
PROVIDERS: PCP Internal Medicine; Referring Provider Internal Medicine Cardiovascular Disease; Visit Provider Internal Medicine Cardiovascular Disease
DX: I25.10 Atherosclerotic heart disease of native coronary artery without angina pectoris (principal); I10 Essential (primary) hypertension; Z95.5 Presence of coronary angioplasty implant and graft
CPT/HCPCS: 78452; 93017; 93306; A9500; A4216